=== PATIENT | female | born 1985 | race Caucasian/White ===

== ENCOUNTER → 2017-03-03 | Outpatient (CLI) | payer OTHER ==
[~2017-03-03] MED LIST: CIPR-255 PO; DPPI150 IM; OMEP20CA9 PO; ZLF/100 PO
[2017-03-03 12:39] LABS: BASO % 0.5 %; BASO ABS # 0.05 K/uL (0-0.2); COMPLETE YES; EOS % 2.7 %; HEMATOCRIT 39.9 % (37-47); IG% 0.3 %; LYMPH % 28.1 %; LYMPH ABS # 2.74 K/uL (1.2-3.4); MEAN CELL VOLUME 89.3 fL (80-100); MEAN CORPUSCULAR HEMOGLOBIN 30.2 pg (25-34); MEAN CORPUSCULAR HGB CONC 33.8 g/dl (32-36); MEAN PLATELET VOLUME 9.5 fL (7.4-10.4); MONO % 7.6 %; NEUT % 60.8 %; PLATELET COUNT 345 K/uL (130-400); RED BLOOD COUNT 4.47 M/uL (4.2-5.4); WHITE BLOOD COUNT 9.76 K/uL (4.8-10.8)
[2017-03-03 13:08] LABS: URINE APPEARANCE TURBID (CLEAR); URINE COLOR DK YELLOW; URINE EPITHELIAL CELL AUTO >30 /lpf (0-5); URINE NITRITE NEG (NEG); URINE PH 5.5 (4.5-7.5); URINE SPECIFIC GRAVITY 1.031 (1.000-1.030); UROBILINOGEN NEG (NEG); ZZUR CULT IF INDIC CLEAN CATCH YES
[2017-03-03 13:14] LABS: ALB/GLOB RATIO 1.3 (0.9-2); ALKALINE PHOSPHATASE 78 U/L (45-117); ALT/SGPT 25 U/L (12-78); AST/SGOT 20 U/L (15-37); BLOOD UREA NITROGEN 11 mg/dl (7-18); BUN/CREATININE RATIO 15.3 (10-20); CALCIUM 9.7 mg/dl (8.5-10.1); CARBON DIOXIDE 24 mmol/L (21-32); CHLORIDE 109 mmol/L (98-107); CREATININE 0.74 mg/dl (0.60-1.20); GLUCOSE 104 mg/dl (70-99); POTASSIUM 3.6 mmol/L (3.5-5.1); SODIUM 141 mmol/L (136-145)
[2017-03-03 13:26] LABS: LYME DISEASE AB IGM NEG (NEG)
[2017-03-03 13:28] LABS: MANUAL MICROSCOPIC REQUIRED? NO; REVIEW REQ? YES; URINE BILIRUBIN NEG (NEG)
[2017-03-03 13:29] LABS: LYME DISEASE AB IGG NEG (NEG)
== END | disposition home or self-care (01) ==
LOC: C.LABPVFM 10:00
PROVIDERS: ATTEND Neuromusculoskeletal Medicine & OMM
DX: R25.2 Cramp and spasm (principal); R30.0 Dysuria

== ENCOUNTER → 2017-03-22 | Outpatient (CLI) | payer OTHER ==
[2017-03-22 18:26] LABS: URINE APPEARANCE CLEAR (CLEAR); URINE BILIRUBIN NEG (NEG); URINE COLOR YELLOW; URINE EPITHELIAL CELL AUTO >30 /lpf (0-5); URINE NITRITE NEG (NEG); URINE PH 6.5 (4.5-7.5); URINE SPECIFIC GRAVITY 1.011 (1.000-1.030); UROBILINOGEN NEG (NEG); ZZUR CULT IF INDIC CLEAN CATCH NO
[2017-03-22 18:28] LABS: MANUAL MICROSCOPIC REQUIRED? NO; REVIEW REQ? NO
== END | disposition home or self-care (01) ==
LOC: C.LABSPEC 17:42
PROVIDERS: ATTEND Neuromusculoskeletal Medicine & OMM
DX: R10.9 Unspecified abdominal pain (principal)

== ENCOUNTER → 2017-06-08 | Outpatient (CLI) | payer OTHER ==
--- NOTE | 2017-06-08 12:08 | DIAGNOSTIC IMAGING REPORT ---
L-SPINE MIN 4 VIEWS ROUTINE HISTORY: 31 years-old Female BACK PAIN, LUMBAR RADICULAR PAIN acute low back pain with radiation to the left lower extremity COMPARISON: CT abdomen and pelvis 06/20/2016 TECHNIQUE: 5 views of the lumbar spine FINDINGS: There are 5 lumbar type vertebral segments present. No spondylolysis or spondylolisthesis. No acute fracture, subluxation or significant degenerative changes. Soft tissues are within normal limits. IMPRESSION: 1. No acute fracture or subluxation. 2. No significant degenerative changes or pars defect identified. The above report was generated using voice recognition software. It may contain grammatical, syntax or spelling errors. Electronically signed by: Adrian Hogue M.D. 06/08/2017 12:07 PM Dictated Date/Time: 06/08/2017 12:06 PM
== END | disposition home or self-care (01) ==
LOC: C.RADPV 11:47
PROVIDERS: ATTEND Nurse Practitioner
DX: M54.16 Radiculopathy, lumbar region (principal)

== ENCOUNTER → 2017-07-04 | Outpatient (CLI) | payer OTHER ==
[~2017-07-04] MED LIST changes: +ACET-1256 PO; +BACL10TA PO; +BUSP5TAB59 PO; +CYCL10TA6 PO; +HYDR-5688 PO; +MEDR150I IM; +buspar PO
--- NOTE | 2017-07-04 10:42 | DIAGNOSTIC IMAGING REPORT ---
MRI OF THE LUMBAR SPINE WITHOUT CONTRAST CLINICAL HISTORY: Low back pain with left-sided radiculopathy. COMPARISON STUDY: Lumbar spine radiographs June 08, 2017. TECHNIQUE: Utilizing a 1.5 Temitope magnet and dedicated coil, multiplanar, multiecho imaging of the lumbar spine was performed without IV contrast. FINDINGS: For purposes of numbering on this exam, the L5-S1 disc space is assigned to axial image 23 of 25. Vertebral body heights are maintained. There is no marrow replacement. No intracanalicular mass or fluid collection is present. The conus terminates at the upper L1 level. Paravertebral soft tissues are unremarkable. This study is mildly compromised by motion artifact. L1-2: The central canal and the neural foramen are patent. L2-3: The central canal and the neural foramen are patent. L3-4: The central canal and the neural foramen are patent. L4-5: The central canal and the neural foramen are patent. L5-S1: There is a small left foraminal/paracentral disc protrusion. There is mild narrowing of the left lateral recess. There is also mild narrowing of the left neural foramen. IMPRESSION: 1. Small left foraminal/paracentral disc protrusion at L5-S1 that results in mild narrowing of the left neural foramen and left lateral recess at this level. 2. Otherwise, unremarkable MRI of the lumbar spine. Electronically signed by: Jon Ochoa M.D. 07/04/2017 10:41 AM Dictated Date/Time: 07/04/2017 10:36 AM
== END | disposition home or self-care (01) ==
LOC: C.MRIBC 09:51
PROVIDERS: ATTEND Nurse Practitioner
DX: M54.16 Radiculopathy, lumbar region (principal); M51.27 Other intervertebral disc displacement, lumbosacral region

== ENCOUNTER 2017-08-27 17:32 | Emergency (ER) | payer OTHER ==
[~2017-08-27] VITALS: Ht 160 cm; Wt 74.8 kg
[~2017-08-27 17:32] MED LIST changes: -BUSP5TAB59 PO; -CIPR-255 PO; -CYCL10TA6 PO; -DPPI150 IM; -HYDR-5688 PO; -MEDR150I IM; -OMEP20CA9 PO; -ZLF/100 PO
[2017-08-27 17:41] VITALS: TEMP 37.2; Ht 160 cm; Wt 74.8 kg
[2017-08-27] MEDS ORDERED: IBUPROFEN 600 MG TAB PO STA (17:56)
[2017-08-27] MEDS ORDERED: ACETAMINOPHEN 500 MG TAB PO STA (17:56)
[2017-08-27] MEDS ORDERED: CLONIDINE HCL 0.1 MG TAB PO STA (17:56)
[2017-08-27] MEDS ORDERED: GABAPENTIN 300 MG CAP PO STA (17:56)
[2017-08-27] MEDS ORDERED: BUSP5TAB59 PO (18:22)
[2017-08-27] MEDS ORDERED: MEDR150I IM (18:22)
[2017-08-27] MEDS ORDERED: HYDR-5688 PO (18:23)
[2017-08-27] MEDS ORDERED: NORCO 5/325MG HOME PACK PO ONE (20:00)
[2017-08-27] MEDS ORDERED: HYDROCODONE/ACETAMIN 5/325MG TAB PO STA (20:00)
--- NOTE | 2017-08-27 20:04 | EMERGENCY ROOM VISIT NOTE ---
History First contact with patient: 17:49 Chief Complaint: BACK PAIN Stated Complaint: BACK PAIN History of Present Illness The patient is a 32 year old female who presents to the Emergency Room with complaints of low back pain with left radiculopathy. The patient states she is "unable to deal with the pain any longer". The patient has been under the care pain management as well as her PCP for her low back pain. She had an MRI performed on July 04, 2017 which revealed a mild paracentral left disc herniation. She then followed up with the pain management and had an epidural which did not give her any relief. She followed up on several occasions at pain management. She went to pain management on August 17 at that time informed them that she was going to go ahead with a different procedure and was placed on Neurontin 300 mg at bedtime. The patient states that she decided not to go ahead with the procedure. She was seen here for her back pain on August 25 just 2 days ago. She had an x-ray at that time which was normal. She also states that later that day she followed up with her PCP and was placed on Cleveland for the pain. She states that the Cleveland is not helping the pain. She also states that her PCP is setting her up with orthopedics for her back. The patient denies any loss of bowel or bladder control or any saddle anesthesia. She states the pain goes down her left leg to her knee. Review of Systems 6 system review was performed and was negative unless stated otherwise in history of present illness. Past Medical/Surgical History Medical Problems: (1) Kidney stones Family History FH: kidney disease Social History Smoking Status: Current Every Day Smoker Alcohol Use: none Marital Status: in relationship Housing Status: lives with family Occupation Status: unemployed Current/Historical Medications Scheduled Buspirone Hcl (Buspirone Hcl), 5 MG PO QAM Medroxyprogesterone Acetate (C (Depo-Provera Contraceptiv), 150 MG IM Q3MO Omeprazole (Prilosec), 20 MG PO BID Sertraline HCl (Sertraline HCl), 200 MG PO QAM Scheduled PRN Acetaminophen (Tylenol), 1,000 MG PO UD PRN for Pain or Fever Baclofen (Lioresal), 10 MG PO TID PRN for Muscle Spasm Hydrocodone/Acetaminophen 5MG/325MG (Cleveland 5MG/325MG), 1 TABLET PO Q4-6HRS PRN for Pain Physical Exam Vital Signs Date Time Temp Pulse Resp B/P (MAP) Pulse Ox O2 Delivery O2 Flow Rate FiO2 08/27/17 17:41 37.2 82 16 143/82 99 Room Air Physical Exam PHYSICAL EXAM: Vital Signs normal: Reviewed Nurse's notes and agree. GENERAL: 32-year-old white female appears crying secondary to pain. MENTAL STATUS: Alert and oriented 3 LUMBAR SPINE: No gross bony abnormality noted. Patient is tender to palpation over the spinous processes. She is tender to palpation over the left paravertebral region, left side nontender. She has limited range of motion in all directions secondary to pain. Muscle strength is 5 out of 5 bilateral lower extremities and symmetrical. NEURO: Patient is able to heel and toe walk without difficulty. I lateral patellar and Achilles reflexes are 2+. Sensation is intact to pinprick bilateral lower extremities. Negative straight leg raise bilaterally. Medical Decision & Procedures Medications Administered Medications (Trade) Dose Ordered Sig/Hoa Route Start Time Stop Time Status Last Admin Dose Admin Acetaminophen (Tylenol Tab) 1,000 mg NOW STAT PO 08/27/17 17:56 08/27/17 17:59 DC 08/27/17 18:21 1,000 MG Ibuprofen (Motrin Tab) 600 mg NOW STAT PO 08/27/17 17:56 08/27/17 17:59 DC 08/27/17 18:21 600 MG Gabapentin (Neurontin Cap) 900 mg NOW STAT PO 08/27/17 17:56 08/27/17 17:59 DC 08/27/17 18:20 900 MG Clonidine HCl (Catapres Tab) 0.2 mg NOW STAT PO 08/27/17 17:56 08/27/17 17:59 DC 08/27/17 18:20 0.2 MG ED Course The patient was evaluated. The patient's EMR medication list were reviewed. I also reviewed the patient's MRI. The patient's pain complaints are way out of proportion to the MRI findings as well as to her physical exam. I think she is seeking narcotics. She did receive morphine last time when she was in the emergency room. I am going to give her a "pain cocktail" she will receive Tylenol 1 g p.o., Motrin 600 mg p.o., clonidine 0.2 mg p.o. and gabapentin 900 mg p.o. the patient was reevaluated. She stated that her pain was now a 7 out of 10. The patient was informed that she cannot get a new prescription since she still has an active prescription for Cleveland since she only received that 2 days ago even though it was just 15 tablets. I did agree to give her 2 tablets while in the ER and give her a home pack to get her through the night until she can contact her family doctor tomorrow. The patient was in agreement with treatment plan and was discharged to home in stable condition with her driving. Medical Decision The patient has already been worked up for her back pain and therefore no additional diagnostic imaging was provided. [place] Drug Monitoring Program Search Results: patient reviewed within database Medication Reconcilliation Current Medication List: was personally reviewed by me Blood Pressure Screening Patient's blood pressure: Elevated blood pressure Blood pressure disposition: Elevated BP felt to be situational Impression Primary Impression: Lumbar back pain with radiculopathy affecting left lower extremity Departure Information Dispostion Home / Self-Care Condition GOOD Referrals Malka Campoverde, C.R.N.P (PCP) Forms HOME CARE DOCUMENTATION FORM, IMPORTANT VISIT INFORMATION Patient Instructions My [facility] Additional Instructions Continue all medications as prescribed. Increase her Cleveland to 2 tablets every 6 hours for pain. Call your family physician tomorrow for follow-up appointment as soon as possible as well as appointment with orthopedics. May also consider speaking with year PCP about switching her Zoloft over to Cymbalta since that might have some added effects for pain control for your lower back. Avoid staying in any one position for any extended period of time.
[2017-08-27] MEDS ORDERED: OMEP20CA9 PO (20:08)
[2017-08-27 20:12] VITALS: BP 110/79; PULSE 69; O2SAT 99
[2017-08-27] MEDS ORDERED: ZLF/100 PO (22:12)
== END 2017-08-27 20:14 | disposition home or self-care (01) ==
LOC: C.EDB 17:33 → C.EDC 20:14
DX: M54.16 Radiculopathy, lumbar region (principal); F17.200 Nicotine dependence, unspecified, uncomplicated; R03.0 Elevated blood-pressure reading, without diagnosis of hypertension; Z87.39 Personal history of other diseases of the musculoskeletal system and connective tissue; Z87.442 Personal history of urinary calculi; Z79.3 Long term (current) use of hormonal contraceptives; Z84.1 Family history of disorders of kidney and ureter

== ENCOUNTER 2021-12-07 16:56 | Inpatient (IN) ==
[2021-12-07] MEDS ORDERED: SODIUM CHLORIDE 0.9% 1000ML 1,000 ML IV ONE ×2 (17:43→20:11)
--- NOTE | 2021-12-07 17:46 | Emergency Department Note ---
Impression & Plan Acute flank pain, UTI (urinary tract infection), Renal colic, Leukocytosis ED Provider Note NAME: MICKIE HERNANDEZ AGE: 36 SEX: F : 1985 ARRIVES VIA: Walk-In INFORMANT: Patient ED PROVIDER(S): René Bright DO CHIEF COMPLAINT: right flank pain HPI: Patient is a 36-year-old female with past medical history of ovarian cysts, gastritis, and previous pyelonephritis who presents the ER for dysuria, urgency, which has been present for the past 3 days. She notes she has been having right back pain for the past 4 days. Denies any headache or change in vision. No chest pain or shortness of breath. No nausea, vomiting, or diarrhea. No other exacerbating or remitting factors. Pain is a 5 out of 10. She was brought in as she was arrested and needs medical clearance from the officers. ROS: See above HPI for pertinent positives & negatives. A total of 10 systems reviewed and were otherwise negative. PAST MEDICAL HISTORY:See Below PAST SURGICAL HISTORY:See Below FAMILY HISTORY:See Below SOCIAL HISTORY:See Below HOME MEDICATIONS:See Below ALLERGIES:See Below VITALS:See Below PHYSICAL EXAMINATION: GENERAL: Sitting up in bed, alert, well appearing, well nourished, no distress, non-toxic, shackled arms EYE EXAM: normal conjunctiva. OROPHARYNX: mucous membranes are moist LUNGS: Clear to auscultation. Normal chest wall mechanics HEART: no murmurs, S1 normal and S2 normal ABDOMEN: abdomen soft, non-tender, normo-active bowel sounds, no masses, no rebound or guarding. BACK: Back is symmetrical on inspection and there is no deformity, no midline tenderness, + CVA tenderness on the right. UPPER EXTREMITIES: upper extremities are grossly normal. LOWER EXTREMITIES: No pitting edema. NEURO EXAM: Normal sensorium, cranial nerves II-XII grossly intact, normal speech, no gross weakness of arms, no gross weakness of legs. MEDICAL DECISION MAKING: Patient is a 36-year-old female who presents ER for the above-stated complaint. IV was established blood work was obtained. Labs show mild leukocytosis of 16,000. No significant anemia. BMP along with LFTs bilirubin and lipase is unremarkable. UA does suggest a UTI. COVID was negative. was negative. CT abdomen pelvis shows a 7 mm left ureteral stone. She was given IV Rocephin IV fluids and IV morphine. She is updated bedside and discussed with Dr. Wilson for further evaluation. She is not septic at this time and consequently did not discussed with urology. Triage Nursing notes reviewed. Limited review of prior medical records performed Vital Signs: reviewed and remarkable for no significant abnormalities Differential diagnosis: Differential diagnoses includes but is not limited to gastritis, peptic ulcer disease, GERD, gallbladder disease, pancreatitis, small bowel obstruction, acute coronary syndrome, pericarditis, ischemic bowel, irritable bowel disease, irritable bowel syndrome, appendicitis, diverticulitis, malignancy, hernia, urinary tract infection, torsion, /ectopic (if female), perforation, trauma, infectious. ER treatment provided: See below Diagnostics interpreted by me: ECG: none Cardiac Monitoring: An order was placed for continuous cardiac monitoring. The monitor shows a rate of 80 with sinus rhythm. Laboratory studies: As stated above and show below. Imaging studies: CT abdomen pelvis as discussed above Consultation(s): Discussed with Dion Wilson for further evaluation Procedures: none Critical Care: None Past Med/Surg History Medical History (Updated 12/07/21 @ 23:18 by René Bright DO) Back pain Ovarian cyst Pyelonephritis Surgical History Status post epidural steroid injection Family History Other History of cholecystectomy Social History Smoking Status: Current every day smoker Preferred Language: Macanese marital status: Single current occupational status: unemployed Feels Safe at Home: Yes Allergies Allergies Allergy/AdvReac Type Severity Reaction Status Date / Time No Known Allergies Allergy Verified 12/07/21 18:03 Home Meds Home Medications Medication Instructions Recorded Confirmed No Known Home Medications 12/07/21 12/07/21 Results & Data (ED) Vital Signs Vital Signs - 24 hr 12/07/21 17:07 12/07/21 19:42 Temperature 36.1 C L Temperature Source Temporal Artery Scan Pulse Rate 83 Pulse Rate [Apical] 80 Respiratory Rate 18 16 Respiratory Effort / Characteristics Non-Labored Respiratory Depth Normal Blood Pressure 112/77 Blood Pressure [Right Arm] 107/57 L Blood Pressure Mean 88 Blood Pressure Mean [Right Arm] 73 Pulse Oximetry 99 99 Oxygen Delivery Method Room Air Room Air Sepsis Recent Fever Within 48 Hours No Sepsis New/Unexplained Change in Mental Status No Sepsis Action Taken by Nursing No Action Required Laboratory Data Result diagrams: 12/07/21 18:05 12/07/21 18:05 Lab Results 12/07/21 12/07/21 12/07/21 Range/Units 18:02 18:02 18:05 WBC 16.62 H (4.8-10.8) K/uL RBC 4.92 (4.2-5.4) M/uL Hgb 15.0 (12.0-16.0) g/dL POC Hgb (12.0-16.0) g/dl Hct 43.8 (37-47) % POC Hct (37-47) % MCV 89.0 (80-100) fL MCH 30.5 (25-34) pg MCHC 34.2 (32-36) g/dL RDW Std Deviation 40.3 (36.4-46.3) fL RDW Coeff of Jr 12.5 (11.5-14.5) % Plt Count 417 H (130-400) K/uL MPV 9.0 (7.4-10.4) fL Immature Gran % (Auto) 0.3 % Neut % (Auto) 84.5 % Lymph % (Auto) 7.5 % [place] % (Auto) 6.3 % Eos % (Auto) 1.2 % Baso % (Auto) 0.2 % Neut # (Auto) 14.04 H (1.4-6.5) K/uL Lymph # (Auto) 1.25 (1.2-3.4) K/uL [place] # (Auto) 1.04 H (0.11-0.59) K/uL Eos # (Auto) 0.20 (0-0.5) K/uL Baso # (Auto) 0.04 (0-0.2) K/uL Immature Gran # (Auto) 0.05 H (0.00-0.02) K/uL POC Sodium (135-144) mmol/L Sodium (136-145) mmol/L POC Potassium (3.3-5.0) mmol/L Potassium (3.5-5.1) mmol/L POC Chloride (101-112) mmol/L Chloride (98-107) mmol/L Carbon Dioxide (21-32) mmol/L POC Total CO2 (24-31) mmol/L Anion Gap (3-11) POC Anion Gap (16-25) mmol/L POC BUN (7-18) mg/dl BUN (6-23) mg/dl Creatinine (0.6-1.2) mg/dl POC Creatinine (0.6-1.3) mg/dl Est Cr Clr Drug Dosing Est GFR ( Amer) ml/min Est GFR (Non-Af Amer) ml/min BUN/Creatinine Ratio (10-20) Glucose (70-99(Fasting)) mg/dl POC Glucose (other) (70-99) mg/dl Calcium (8.5-10.1) mg/dl POC Ioniz Calcium Deyvi (1.12-1.32) mmol/l Total Bilirubin (0.2-1.0) mg/dl AST (13-39) U/L ALT (7-52) U/L Alkaline Phosphatase (34-104) U/L Total Protein (6.0-8.3) gm/dl Albumin (3.4-5.0) gm/dl Globulin (2.5-4.0) gm/dl Albumin/Globulin Ratio (0.9-2) Lipase (11-82) U/L Urine Color Yellow Urine Appearance Clear (Clear) Urine pH 6.0 (4.5-7.5) Ur Specific Dorothy 1.004 (1.000-1.030) Urine Protein Negative (Negative) Urine Glucose (UA) Negative (Negative) Urine Ketones Negative (Negative) Urine Blood 2+ H (Negative) Urine Nitrite Negative (Negative) Urine Bilirubin Negative (Negative) Urine Urobilinogen Negative (Negative) Ur Leukocyte Esterase 1+ H (Negative) Urine WBC (Auto) 5-10 H (0-5) /hpf Urine RBC (Auto) 5-10 H (0-4) /hpf U Hyaline Cast (Auto) 1-5 (0-5) /lpf U Epithel Cells (Auto) 10-20 H (0-5) /lpf Urine Bacteria (Auto) 1+ H (Negative) POC Ur Test NEG (NEG) SARS-CoV-2, RNA, NAAT (NEGATIVE) 12/07/21 12/07/21 12/07/21 Range/Units 18:05 18:12 20:27 WBC (4.8-10.8) K/uL RBC (4.2-5.4) M/uL Hgb (12.0-16.0) g/dL POC Hgb 15.0 (12.0-16.0) g/dl Hct (37-47) % POC Hct 44 (37-47) % MCV (80-100) fL MCH (25-34) pg MCHC (32-36) g/dL RDW Std Deviation (36.4-46.3) fL RDW Coeff of Jr (11.5-14.5) % Plt Count (130-400) K/uL MPV (7.4-10.4) fL Immature Gran % (Auto) % Neut % (Auto) % Lymph % (Auto) % [place] % (Auto) % Eos % (Auto) % Baso % (Auto) % Neut # (Auto) (1.4-6.5) K/uL Lymph # (Auto) (1.2-3.4) K/uL [place] # (Auto) (0.11-0.59) K/uL Eos # (Auto) (0-0.5) K/uL Baso # (Auto) (0-0.2) K/uL Immature Gran # (Auto) (0.00-0.02) K/uL POC Sodium 138 (135-144) mmol/L Sodium 136 (136-145) mmol/L POC Potassium 3.8 (3.3-5.0) mmol/L Potassium 3.7 (3.5-5.1) mmol/L POC Chloride 98 L (101-112) mmol/L Chloride 100 (98-107) mmol/L Carbon Dioxide 28 (21-32) mmol/L POC Total CO2 26 (24-31) mmol/L Anion Gap 8 (3-11) POC Anion Gap 18.0 (16-25) mmol/L POC BUN 9 (7-18) mg/dl BUN 11 (6-23) mg/dl Creatinine 1.31 H (0.6-1.2) mg/dl POC Creatinine 1.3 (0.6-1.3) mg/dl Est Cr Clr Drug Dosing Not Reportable Est GFR ( Amer) 61.4 ml/min Est GFR (Non-Af Amer) 53.0 ml/min BUN/Creatinine Ratio 8.4 L (10-20) Glucose 93 (70-99(Fasting)) mg/dl POC Glucose (other) 99 (70-99) mg/dl Calcium 10.1 (8.5-10.1) mg/dl POC Ioniz Calcium Deyvi 1.25 (1.12-1.32) mmol/l Total Bilirubin 1.5 H (0.2-1.0) mg/dl AST 15 (13-39) U/L ALT 12 (7-52) U/L Alkaline Phosphatase 69 (34-104) U/L Total Protein 8.2 (6.0-8.3) gm/dl Albumin 5.1 H (3.4-5.0) gm/dl Globulin 3.1 (2.5-4.0) gm/dl Albumin/Globulin Ratio 1.6 (0.9-2) Lipase 38 (11-82) U/L Urine Color Yellow Urine Appearance Clear (Clear) Urine pH 6.0 (4.5-7.5) Ur Specific Dorothy 1.027 (1.000-1.030) Urine Protein Negative (Negative) Urine Glucose (UA) Negative (Negative) Urine Ketones Trace H (Negative) Urine Blood 1+ H (Negative) Urine Nitrite Negative (Negative) Urine Bilirubin Negative (Negative) Urine Urobilinogen Negative (Negative) Ur Leukocyte Esterase 1+ H (Negative) Urine WBC (Auto) 10-30 H (0-5) /hpf Urine RBC (Auto) 0-4 (0-4) /hpf U Hyaline Cast (Auto) 1-5 (0-5) /lpf U Epithel Cells (Auto) 5-10 H (0-5) /lpf Urine Bacteria (Auto) 1+ H (Negative) POC Ur Test (NEG) SARS-CoV-2, RNA, NAAT (NEGATIVE) 12/07/21 Range/Units 22:40 WBC (4.8-10.8) K/uL RBC (4.2-5.4) M/uL Hgb (12.0-16.0) g/dL POC Hgb (12.0-16.0) g/dl Hct (37-47) % POC Hct (37-47) % MCV (80-100) fL MCH (25-34) pg MCHC (32-36) g/dL RDW Std Deviation (36.4-46.3) fL RDW Coeff of Jr (11.5-14.5) % Plt Count (130-400) K/uL MPV (7.4-10.4) fL Immature Gran % (Auto) % Neut % (Auto) % Lymph % (Auto) % [place] % (Auto) % Eos % (Auto) % Baso % (Auto) % Neut # (Auto) (1.4-6.5) K/uL Lymph # (Auto) (1.2-3.4) K/uL [place] # (Auto) (0.11-0.59) K/uL Eos # (Auto) (0-0.5) K/uL Baso # (Auto) (0-0.2) K/uL Immature Gran # (Auto) (0.00-0.02) K/uL POC Sodium (135-144) mmol/L Sodium (136-145) mmol/L POC Potassium (3.3-5.0) mmol/L Potassium (3.5-5.1) mmol/L POC Chloride (101-112) mmol/L Chloride (98-107) mmol/L Carbon Dioxide (21-32) mmol/L POC Total CO2 (24-31) mmol/L Anion Gap (3-11) POC Anion Gap (16-25) mmol/L POC BUN (7-18) mg/dl BUN (6-23) mg/dl Creatinine (0.6-1.2) mg/dl POC Creatinine (0.6-1.3) mg/dl Est Cr Clr Drug Dosing Est GFR ( Amer) ml/min Est GFR (Non-Af Amer) ml/min BUN/Creatinine Ratio (10-20) Glucose (70-99(Fasting)) mg/dl POC Glucose (other) (70-99) mg/dl Calcium (8.5-10.1) mg/dl POC Ioniz Calcium Deyvi (1.12-1.32) mmol/l Total Bilirubin (0.2-1.0) mg/dl AST (13-39) U/L ALT (7-52) U/L Alkaline Phosphatase (34-104) U/L Total Protein (6.0-8.3) gm/dl Albumin (3.4-5.0) gm/dl Globulin (2.5-4.0) gm/dl Albumin/Globulin Ratio (0.9-2) Lipase (11-82) U/L Urine Color Urine Appearance (Clear) Urine pH (4.5-7.5) Ur Specific Dorothy (1.000-1.030) Urine Protein (Negative) Urine Glucose (UA) (Negative) Urine Ketones (Negative) Urine Blood (Negative) Urine Nitrite (Negative) Urine Bilirubin (Negative) Urine Urobilinogen (Negative) Ur Leukocyte Esterase (Negative) Urine WBC (Auto) (0-5) /hpf Urine RBC (Auto) (0-4) /hpf U Hyaline Cast (Auto) (0-5) /lpf U Epithel Cells (Auto) (0-5) /lpf Urine Bacteria (Auto) (Negative) POC Ur Test (NEG) SARS-CoV-2, RNA, NAAT NEGATIVE (NEGATIVE) Administered Medications Discontinued Medications Sodium Chloride (Nss 1000ml) 1,000 mls @ 999 mls/hr IV .Q1H1M ONE Stop: 12/07/21 18:43 Last Infusion: 12/07/21 19:04 Dose: 0 mls/hr Documented by: [id number] Admin: 12/07/21 18:03 Dose: 999 mls/hr Documented by: [id number] Sodium Chloride (Nss 1000ml) 1,000 mls @ 999 mls/hr IV .Q1H1M ONE Stop: 12/07/21 21:11 Last Infusion: 12/07/21 21:04 Dose: 0 mls/hr Documented by: [id number] Admin: 12/07/21 20:24 Dose: 999 mls/hr Documented by: [id number] Ceftriaxone Sodium (Rocephin) 1,000 mg in 50 mls @ 100 mls/hr IV NOW STA Stop: 12/07/21 22:25 Last Admin: 12/07/21 22:47 Dose: 100 mls/hr Documented by: [id number] Ioversol (Optiray 320 100ml) 93 ml IV ONCE ONE Stop: 12/07/21 19:18 Last Admin: 12/07/21 19:17 Dose: 93 ml Documented by: [id number] Morphine Sulfate (Morphine Sulfate 4 Mg/Ml 1 Ml Carp\Vial) 4 mg IV NOW STA Stop: 06/07/22 21:57 Last Admin: 12/07/21 22:16 Dose: 4 mg Documented by: [id number] Ondansetron HCl (Ondansetron Inj 2 Mg/Ml 2 Ml Vial) 4 mg IV NOW STA Stop: 12/07/21 21:57 Last Admin: 12/07/21 22:16 Dose: 4 mg Documented by: [id number] Imaging Data Radiologist's Impression: Abdomen/Pelvis CT 12/07/21 17:[address] WITH IV CONTRAST CT DOSE: 256.08 mGy.cm HISTORY: Acute right-sided flank pain r flank pain TECHNIQUE: Multiaxial CT images of the abdomen and pelvis were performed following the IV administration of 93 cc of Optiray, A dose lowering technique was utilized adhering to the principles of ALARA. COMPARISON STUDY: 05/21/2018 FINDINGS: Imaged inferior cardiac chambers are unremarkable. Clear lung bases. No pneumatosis or pneumoperitoneum. Unremarkable spleen, pancreas, gallbladder, adrenal glands and liver. Patency of the hepatic and portal veins. 11 mm hypodense focus of the interpolar right kidney is suggestive of a cyst, previously 7 mm. There is mild left-sided hydroureter without significant hydronephrosis. Mild urothelial thickening and enhancement of the left ureter with a 5 x 4 x 7 mm left ureteral calculus at the level of L4. 4 mm nonobstructing calculus of the inferior pole left kidney. Unremarkable urinary bladder and adnexa 1.3 cm right ovarian follicle. Heterogeneous appearance of the uterus. Aorta and IVC are unremarkable. There is no lymphadenopathy. No bowel obstruction or bowel wall thickening. Normal appendix. Unremarkable soft tissues. Tiny fat filled periumbilical hernia. No acute fracture. Mild lumbar levoscoliosis. IMPRESSION: 1. Mild left-sided hydroureter without significant hydronephrosis secondary to a 7 mm left ureteral calculus at the level of L4. 2. Mild urothelial thickening and enhancement of the left ureter is likely reactive. Correlate with urinalysis to exclude superimposed infection. 3. Left nephrolithiasis. 4. No bowel obstruction or bowel wall thickening. Normal appendix. ACT 112: Negative or not required by law. The above report was generated using voice recognition software. It may contain grammatical, syntax or spelling errors. Electronically signed by: Kuldip Hogue M.D. 12/07/2021 7:51 PM Discharge Plan Visit Data Chief Complaint: Medical Clearance Stated Complaint: KIDNEY PAIN, POSSIBLE KIDNEY STONE ED Provider: René Bright Discharge Problem: Acute flank pain, UTI (urinary tract infection), Renal colic, Leukocytosis Forms Stand Alone Forms: ENEFpro Prescriptions Prescriptions: No Action No Known Home Medications RF: 0 Referrals Referrals: Eyal Johnson MD [Outside Practitioners] - Discharge Problem: UTI (urinary tract infection) Qualifiers: Urinary tract infection type: acute cystitis Hematuria presence: with hematuria Qualified Code(s): N30.01 - Acute cystitis with hematuria Leukocytosis Qualifiers: Leukocytosis type: unspecified Qualified Code(s): D72.829 - Elevated white blood cell count, unspecified
[2021-12-07 18:25] LABS: iSTAT Creatinine 1.3 mg/dl (0.6-1.3); iSTAT Ionized Calcium 1.25 mmol/l (1.12-1.32); iSTAT Potassium 3.8 mmol/L (3.3-5.0)
[2021-12-07 18:29] LABS: Basophils # (auto) 0.04 K/uL (0-0.2); Basophils % (auto) 0.2 %; Eosinophils % (auto) 1.2 %; Hematocrit (blood only) 43.8 % (37-47); Immature Granulocytes # (auto) 0.05 K/uL (0.00-0.02); Immature Granulocytes % (auto) 0.3 %; Lymphocytes # (auto) 1.25 K/uL (1.2-3.4); Lymphocytes % (auto) 7.5 %; Mean Corpuscular Hemoglobin 30.5 pg (25-34); Mean Corpuscular Hgb Conc 34.2 g/dL (32-36); Monocytes # (auto) 1.04 K/uL (0.11-0.59); Monocytes % (auto) 6.3 %; Neutrophils # (auto) 14.04 K/uL (1.4-6.5); Neutrophils % (auto) 84.5 %; Platelet Count 417 K/uL (130-400); RDW Coefficient of Variation 12.5 % (11.5-14.5); RDW Standard Deviation 40.3 fL (36.4-46.3); Red Blood Count 4.92 M/uL (4.2-5.4); White Blood Count 16.62 K/uL (4.8-10.8)
[2021-12-07 19:00] LABS: Alanine Aminotransferase 12 U/L (7-52); Albumin Globulin Ratio 1.6 (0.9-2); Albumin Level 5.1 gm/dl (3.4-5.0); Alkaline Phosphatase 69 U/L (34-104); Anion Gap 8 (3-11); Aspartate Aminotransferase 15 U/L (13-39); BUN Creatinine Ratio 8.4 (10-20); Bilirubin,Total 1.5 mg/dl (0.2-1.0); Blood Urea Nitrogen 11 mg/dl (6-23); Calcium 10.1 mg/dl (8.5-10.1); Carbon Dioxide 28 mmol/L (21-32); Chloride 100 mmol/L (98-107); Est GFR (African American) 61.4 ml/min; Globulin 3.1 gm/dl (2.5-4.0); Glucose 93 mg/dl (70-99(Fasting)); Lipase 38 U/L (11-82); Potassium 3.7 mmol/L (3.5-5.1); Sodium 136 mmol/L (136-145); Total Protein 8.2 gm/dl (6.0-8.3)
[2021-12-07 19:06] LABS: Appearance Urine Clear (Clear); Bilirubin Urine Negative (Negative); Blood Urine 2+ (Negative); Color Urine Yellow; Glucose Urine UA Negative (Negative); Ketones Urine Negative (Negative); Leukocyte Esterase Urine 1+ (Negative); Nitrite Urine Negative (Negative); Protein Urine Negative (Negative); Specific Gravity Urine 1.004 (1.000-1.030); Urobilinogen Urine Negative (Negative)
[2021-12-07] MEDS ORDERED: OPTIRAY 320 100ml IV ONE (19:17)
[2021-12-07 19:33] LABS: Bacteria Urine Automated 1+ (Negative)
--- NOTE | 2021-12-07 19:53 | CT Scan Report ---
ABDOMEN AND PELVIS CT WITH IV CONTRAST CT DOSE: 256.08 mGy.cm HISTORY: Acute right-sided flank pain r flank pain TECHNIQUE: Multiaxial CT images of the abdomen and pelvis were performed following the IV administrat ion of 93 cc of Optiray, A dose lowering technique was utilized adhering to the principles of ALARA. COMPARISON STUDY: 05/21/2018 FINDINGS: Imaged inferior cardiac chambers are unremarkable. Clear lung bases. No pneumatosis or pneu moperitoneum. Unremarkable spleen, pancreas, gallbladder, adrenal glands and liver. Patency of the he patic and portal veins. 11 mm hypodense focus of the interpolar right kidney is suggestive of a cyst, previously 7 mm. There is mild left-sided hydroureter without significant hydronephrosis. Mild urothelial thickening and enh ancement of the left ureter with a 5 x 4 x 7 mm left ureteral calculus at the level of L4. 4 mm nonobstructing calculus of the inferior pole left kidney. Unremarkable urinary bladder and adnex a 1.3 cm right ovarian follicle. Heterogeneous appearance of the uterus. Aorta and IVC are unremarkab le. There is no lymphadenopathy. No bowel obstruction or bowel wall thickening. Normal appendix. Unre markable soft tissues. Tiny fat filled periumbilical hernia. No acute fracture. Mild lumbar levoscoli osis. IMPRESSION: 1. Mild left-sided hydroureter without significant hydronephrosis secondary to a 7 mm left ureteral c alculus at the level of L4. 2. Mild urothelial thickening and enhancement of the left ureter is likely reactive. Correlate with u rinalysis to exclude superimposed infection. 3. Left nephrolithiasis. 4. No bowel obstruction or bowel wall thickening. Normal appendix. ACT 112: Negative or not required by law. The above report was generated using voice recognition software. It may contain grammatical, syntax o r spelling errors. Electronically signed by: Kuldip Hogue M.D. 12/07/2021 7:51 PM
[2021-12-07 21:24] LABS: Appearance Urine Clear (Clear); Bacteria Urine Automated 1+ (Negative); Bilirubin Urine Negative (Negative); Blood Urine 1+ (Negative); Color Urine Yellow; Glucose Urine UA Negative (Negative); Ketones Urine Trace (Negative); Leukocyte Esterase Urine 1+ (Negative); Nitrite Urine Negative (Negative); Protein Urine Negative (Negative); RBC Urine Automated 0-4 /hpf (0-4); Specific Gravity Urine 1.027 (1.000-1.030); Urobilinogen Urine Negative (Negative)
[2021-12-07] MEDS ORDERED: MoRPHine SULFATE 4 MG/ML 1 ML CARP\\VIAL IV STA (21:56)
[2021-12-07] MEDS ORDERED: cefTRIAXone SODIUM 1,000 MG/50 ML BAG IV STA (21:56)
[2021-12-07] MEDS ORDERED: ONDANSETRON INJ 2 MG/ML 2 ML VIAL IV STA (21:56)
[2021-12-07] MEDS ORDERED: LACTATED RINGER'S 1,000 ML IV ONE (23:20)
--- NOTE | 2021-12-07 23:38 | History & Physical Report ---
Date of Service December 07, 2021 Assessment & Plan (1) ARF (acute renal failure): Plan: Secondary to obstructive uropathy History of kidney stones No sepsis for now GERD, stable GMF Monitor creatinine response to IVF Strain urine Urology consult Re: Obstructive uropathy DVT prophylaxis. SCDs Full code Text document was generated using [employer] voice recognition software. It may contain grammatical or spelling errors. Kindly contact undersigned for clarification of any documentation item in question. ADDENDUM : Patient seen by Jabari Betts PA-C (Urology) on the floor. He recommends Flomax and IV Ceftriaxone. History of Present Illness Chief Complaint: Kidney stone pain Primary Care Provider: Dr. Johnson History obtained from patient and records. Medical history significant for urolithiasis, GERD, anxiety disorder. 4 days ago, patient noted back pain more on the right reminiscent of kidney stone pain. No hematuria, no fever. Some chills. Patient denies chest pain, SOB. Admits to not drinking as much water as she should. Patient given IV ceftriaxone at the ER. Medical History as above Surgical History : Paternal surgery, dental surgery Family History : Kidney stones Personal/Social history : Non-smoker, no EtOH intake, caregiver Allergies Allergy/AdvReac Type Severity Reaction Status Date / Time No Known Allergies Allergy Verified 12/07/21 18:03 Home Medications Medication Instructions Recorded Confirmed Type No Known Home Medications 12/07/21 12/07/21 History Past Med/Surg History Medical History (Updated 12/08/21 @ 09:18 by KADI Mehta) Back pain Ovarian cyst Pyelonephritis Surgical History Status post epidural steroid injection Family History Other History of cholecystectomy Social History Smoking Status: Never smoker Hx Alcohol Use: No Hx Substance Use: Yes Last Used Substance: Days (ago) Preferred Language: Kazakh Communication Ability: Effective 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 Beliefs That Will Affect Care: None marital status: Single Current Living Situation: Family current occupational status: unemployed Other Information That Helps Us Care for You: No Feels Safe at Home: Yes Safety Concerns: Feels Safe At This Time Assistive Devices: None Review of Systems Review of Systems: As per HPI, all other systems reviewed and negative Physical Exam Physical Exam: GENERAL: Slightly uncomfortable, no respiratory distress SKIN: Normal color, warm HEENT: [place] palpebral conjunctivae, teary-eyed, no ptosis, dry buccal mucosa NECK : Supple, no tenderness CHEST : CTA, no tenderness HEART : RRR, no obvious murmurs ABDOMEN: Some distention, nontender EXTREMITIES : No LE swelling/tenderness, no other conspicuous deformities noted NEUROLOGIC : Coherent, no facial asymmetry, no other gross focality Results & Data Results & Data ([facility]) Vital Signs (Past 12 Hours) Vital Signs Temp Pulse Pulse Resp BP BP Pulse Ox 12/07/21 23:00 83 17 132/79 98 12/07/21 19:42 80 16 107/57 L 99 12/07/21 17:07 36.1 C L 83 18 112/77 99 Laboratory Results Laboratory Results WBC 16.62 K/uL (4.8-10.8) H 12/07/21 18:05 RBC 4.92 M/uL (4.2-5.4) 12/07/21 18:05 Hgb 15.0 g/dL (12.0-16.0) 12/07/21 18:05 POC Hgb 15.0 g/dl (12.0-16.0) 12/07/21 18:12 Hct 43.8 % (37-47) 12/07/21 18:05 POC Hct 44 % (37-47) 12/07/21 18:12 MCV 89.0 fL (80-100) 12/07/21 18:05 MCH 30.5 pg (25-34) 12/07/21 18:05 MCHC 34.2 g/dL (32-36) 12/07/21 18:05 RDW Std Deviation 40.3 fL (36.4-46.3) 12/07/21 18:05 RDW Coeff of Jr 12.5 % (11.5-14.5) 12/07/21 18:05 Plt Count 417 K/uL (130-400) H 12/07/21 18:05 MPV 9.0 fL (7.4-10.4) 12/07/21 18:05 Immature Gran % (Auto) 0.3 % 12/07/21 18:05 Neut % (Auto) 84.5 % 12/07/21 18:05 Lymph % (Auto) 7.5 % 12/07/21 18:05 [place] % (Auto) 6.3 % 12/07/21 18:05 Eos % (Auto) 1.2 % 12/07/21 18:05 Baso % (Auto) 0.2 % 12/07/21 18:05 Neut # (Auto) 14.04 K/uL (1.4-6.5) H 12/07/21 18:05 Lymph # (Auto) 1.25 K/uL (1.2-3.4) 12/07/21 18:05 [place] # (Auto) 1.04 K/uL (0.11-0.59) H 12/07/21 18:05 Eos # (Auto) 0.20 K/uL (0-0.5) 12/07/21 18:05 Baso # (Auto) 0.04 K/uL (0-0.2) 12/07/21 18:05 Immature Gran # (Auto) 0.05 K/uL (0.00-0.02) H 12/07/21 18:05 POC Sodium 138 mmol/L (135-144) 12/07/21 18:12 Sodium 136 mmol/L (136-145) 12/07/21 18:05 POC Potassium 3.8 mmol/L (3.3-5.0) 12/07/21 18:12 Potassium 3.7 mmol/L (3.5-5.1) 12/07/21 18:05 POC Chloride 98 mmol/L (101-112) L 12/07/21 18:12 Chloride 100 mmol/L (98-107) 12/07/21 18:05 Carbon Dioxide 28 mmol/L (21-32) 12/07/21 18:05 POC Total CO2 26 mmol/L (24-31) 12/07/21 18:12 Anion Gap 8 (3-11) 12/07/21 18:05 POC Anion Gap 18.0 mmol/L (16-25) 12/07/21 18:12 POC BUN 9 mg/dl (7-18) 12/07/21 18:12 BUN 11 mg/dl (6-23) 12/07/21 18:05 Creatinine 1.31 mg/dl (0.6-1.2) H 12/07/21 18:05 POC Creatinine 1.3 mg/dl (0.6-1.3) 12/07/21 18:12 Est Cr Clr Drug Dosing Not Reportable 12/07/21 18:05 Est GFR ( Amer) 61.4 ml/min 12/07/21 18:05 Est GFR (Non-Af Amer) 53.0 ml/min 12/07/21 18:05 BUN/Creatinine Ratio 8.4 (10-20) L 12/07/21 18:05 Glucose 93 mg/dl (70-99(Fasting)) 12/07/21 18:05 POC Glucose (other) 99 mg/dl (70-99) 12/07/21 18:12 Calcium 10.1 mg/dl (8.5-10.1) 12/07/21 18:05 POC Ioniz Calcium Deyvi 1.25 mmol/l (1.12-1.32) 12/07/21 18:12 Total Bilirubin 1.5 mg/dl (0.2-1.0) H 12/07/21 18:05 AST 15 U/L (13-39) 12/07/21 18:05 ALT 12 U/L (7-52) 12/07/21 18:05 Alkaline Phosphatase 69 U/L (34-104) 12/07/21 18:05 Total Protein 8.2 gm/dl (6.0-8.3) 12/07/21 18:05 Albumin 5.1 gm/dl (3.4-5.0) H 12/07/21 18:05 Globulin 3.1 gm/dl (2.5-4.0) 12/07/21 18:05 Albumin/Globulin Ratio 1.6 (0.9-2) 12/07/21 18:05 Lipase 38 U/L (11-82) 12/07/21 18:05 Urine Color Yellow 12/07/21: Urine Appearance Clear (Clear) 12/07/21 Urine pH 6.0 (4.5-7.5) 12/07/21: Ur Specific [place] 1.027 (1.000-1.030) 12/07/21 Urine Protein Negative (Negative) 06/07/22 20:27 Urine Glucose (UA) Negative (Negative) 12/07/21 20:27 Urine Ketones Trace (Negative) H 12/07/21 20:27 Urine Blood 1+ (Negative) H 12/07/21 20:27 Urine Nitrite Negative (Negative) 12/07/21 20:27 Urine Bilirubin Negative (Negative) 12/07/21 20:27 Urine Urobilinogen Negative (Negative) 12/07/21 20:27 Ur Leukocyte Esterase 1+ (Negative) H 12/07/21 20:27 Urine WBC (Auto) 10-30 /hpf (0-5) H 12/07/21 20:27 Urine RBC (Auto) 0-4 /hpf (0-4) 12/07/21 20:27 U Hyaline Cast (Auto) 1-5 /lpf (0-5) 12/07/21 20:27 U Epithel Cells (Auto) 5-10 /lpf (0-5) H 12/07/21 20:27 Urine Bacteria (Auto) 1+ (Negative) H 12/07/21 20:27 POC Ur Test NEG (NEG) 12/07/21 18:02 SARS-CoV-2, RNA, NAAT NEGATIVE (NEGATIVE) 12/07/21 22:40 Impressions Abdomen/Pelvis CT 12/07/21 17:[address] WITH IV CONTRAST CT DOSE: 256.08 mGy.cm HISTORY: Acute right-sided flank pain r flank pain TECHNIQUE: Multiaxial CT images of the abdomen and pelvis were performed following the IV administration of 93 cc of Optiray, A dose lowering technique was utilized adhering to the principles of ALARA. COMPARISON STUDY: 05/21/2018 FINDINGS: Imaged inferior cardiac chambers are unremarkable. Clear lung bases. No pneumatosis or pneumoperitoneum. Unremarkable spleen, pancreas, gallbladder, adrenal glands and liver. Patency of the hepatic and portal veins. 11 mm hypodense focus of the interpolar right kidney is suggestive of a cyst, previously 7 mm. There is mild left-sided hydroureter without significant hydronephrosis. Mild urothelial thickening and enhancement of the left ureter with a 5 x 4 x 7 mm left ureteral calculus at the level of L4. 4 mm nonobstructing calculus of the inferior pole left kidney. Unremarkable ur inary bladder and adnexa 1.3 cm right ovarian follicle. Heterogeneous appearance of the uterus. Aorta and IVC are unremarkable. There is no lymphadenopathy. No bowel obstruction or bowel wall thickening. Normal appendix. Unremarkable soft tissues. Tiny fat filled periumbilical hernia. No acute fracture. Mild lumbar levoscoliosis. IMPRESSION: 1. Mild left-sided hydroureter without significant hydronephrosis secondary to a 7 mm left ureteral calculus at the level of L4. 2. Mild urothelial thickening and enhancement of the left ureter is likely reactive. Correlate with urinalysis to exclude superimposed infection. 3. Left nephrolithiasis. 4. No bowel obstruction or bowel wall thickening. Normal appendix. ACT 112: Negative or not required by law. The above report was generated using voice recognition software. It may contain grammatical, syntax or spelling errors. Electronically signed by: Kuldip Hogue M.D. 12/07/2021 7:51 PM Diagnostic Findings Chest x-ray as per my interpretation no congestion
[2021-12-07] MEDS ORDERED: oxyCODONE HCL IR 5 MG TAB (IMMEDIATE RELEASE) PO STA (23:42)
[2021-12-08] MEDS ORDERED: HYDROmorphone INJ 0.5 MG/0.5 ML SYR IV PRN (01:47)
[2021-12-08] MEDS ORDERED: PROMETHAZINE HCL 12.5 MG in SODIUM CHLORIDE 0.9% 50 ML IV PRN (01:47)
--- NOTE | 2021-12-08 05:25 | Urology Consultation ---
Date of Consultation December 08, 2021 Assessment & Plan (1) Nephrolithiasis: Patient has been admitted on the hospitalist service. We recommend proceeding as follows: Provide analgesics Provide antiemetics Provide hydration measures with IV fluids She has received Rocephin in the emergency department. Due to her elevated white blood cell count, chills, and urinalysis findings would recommend continuous medication and following patient's urine culture tailoring antibiotics based on the results of this Consider adding Flomax for expulsive therapy Keep patient n.p.o. she will be evaluated by our urology day team to determine if she will require any cystoscopy. The above plan was discussed with the hospitalist service. History of Present Illness Reason for Consultation: Nephrolithiasis Attending Physician: Blaise Reeves MD History of Present Illness This is a 36-year-old female who presented to [facility] emergency department secondary to 3 to 4 days of flank pain. Patient says that she did have some pain in both flanks but was primarily on the left. She notes that there was some radiation of the pain to the front of her abdomen. She denies any nausea or vomiting. No fevers were reported but she did report occasional chills. She does report some intermittent dysuria denies any hematuria. She does report history of kidney stones in the past but has always been able to pass them on her own without any procedural intervention. Since admission to the hospital and presentation to the emergency department the patient has had labs and imaging which I independently reviewed. Patient is noted to have mild left-sided hydroureter secondary to a 7 mm left ureteral k idney stone. Chest x-ray showed no evidence of pneumonia. Labs including CBC were white blood cell count was 16.6. Hemoglobin and hematocrit were noted to be within normal range. Platelet count was 417,000. Chemistry profile showed sodium and potassium are both normal as were BUN. Fattening had a slight elevation at 1.3. Urinalysis showed 1+ leukocyte Estrace and 10-30 white blood cells per high-power field. There is 1+ bacteria in the study. A COVID test was noted to be negative and a test was noted be negative. At the time of my interview the patient noted that her flank pain had shifted more to the area of her bladder. She was in no distress. Allergies Allergy/AdvReac Type Severity Reaction Status Date / Time No Known Allergies Allergy Verified 12/07/21 18:03 Home Medications Medication Instructions Recorded Confirmed Type No Known Home Medications 12/07/21 12/07/21 History Patient History Medical History (Updated 12/08/21 @ 05:22 by Mushtaq Betts PA-C) Back pain Ovarian cyst Pyelonephritis Surgical History Status post epidural steroid injection Family History Other History of cholecystectomy Social History Smoking Status: Never smoker Hx Alcohol Use: No Hx Substance Use: Yes Last Used Substance: Days (ago) Preferred Language: Wolof Communication Ability: 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 Beliefs That Will Affect Care: None marital status: Single Current Living Situation: Family current occupational status: unemployed Other Information That Helps Us Care for You: No Feels Safe at Home: Yes Safety Concerns: Feels Safe At This Time Assistive Devices: None Review of Systems Constitutional: + chills; no fever Eyes: no eye pain Ear, Nose, Mouth, Throat: no ear pain Respiratory: no cough and no dyspnea Cardiovascular: no chest pain Gastrointestinal: + abdominal pain (Radiation from flank on left); no nausea and no vomiting Genitourinary: + dysuria; no hematuria Musculoskeletal: + back pain (Flank pain) Integumentary: no rash Neurologic: no localized weakness Physical Exam Constitutional: WD/WN, vitals as above Eyes: no conjunctival abnormality ENMT: Ears: no hearing impairment and no external ear abnormality Mouth: no oropharynx abnormality Neck: trachea midline Respiratory: normal respiratory effort; no respiratory distress and no labored breathing Cardiovascular: Rate/Rhythm: regular rate and regular rhythm Gastrointestinal (Abdomen): Soft, nontender, nonrigid, nondistended. There is minimal to no palpation with pain Musculoskeletal: No calf tenderness Skin: no rashes Neurologic: moves all extremities Psychiatric: A+Ox3, euthymic affect Genitourinary: + CVA tenderness (Bilateral with percussion, left greater than right) Results & Data ([facility]) Vital Signs (Past 12 Hours) Vital Signs Temp Pulse Pulse Pulse Resp BP BP 12/08/21 01:35 36.7 C 57 L 18 119/67 12/08/21 01:00 74 19 118/70 12/08/21 00:00 63 18 124/61 12/07/21 23:00 83 17 132/79 12/07/21 19:42 80 16 107/57 L Pulse Ox 12/08/21 01:35 99 12/08/21 01:00 97 12/08/21 00:00 97 12/07/21 23:00 98 12/07/21 19:42 99 PG Care Time/CCT Total # of Minutes Spent Total Time Spent with Patient: Total time spent is greater than 50% in coordination of care (as documented) at patient's floor/unit and/or counseling patient: Coding Level of Care Code 89298 Inpt Consult Level 5 Diagnoses Nephrolithiasis N20.0
[2021-12-08] MEDS: oxyCODONE HCL IR 5 MG TAB (IMMEDIATE RELEASE) PO PRN ×2 (05:35→14:03)
[2021-12-08] MEDS: LACTATED RINGER'S 1,000 ML IV SCH ×2 (05:41→12:46)
[2021-12-08] MEDS: TAMSULOSIN HCL 0.4 MG CAP PO SCH (06:33)
[2021-12-08 07:08] LABS: Basophils # (auto) 0.03 K/uL (0-0.2); Basophils % (auto) 0.3 %; Eosinophils # (auto) 0.31 K/uL (0-0.5); Eosinophils % (auto) 3.3 %; Hematocrit (blood only) 38.1 % (37-47); Hemoglobin 12.5 g/dL (12.0-16.0); Immature Granulocytes # (auto) 0.02 K/uL (0.00-0.02); Immature Granulocytes % (auto) 0.2 %; Lymphocytes # (auto) 2.64 K/uL (1.2-3.4); Mean Corpuscular Hemoglobin 29.6 pg (25-34); Mean Corpuscular Hgb Conc 32.8 g/dL (32-36); Mean Corpuscular Volume 90.1 fL (80-100); Mean Platelet Volume 8.9 fL (7.4-10.4); Monocytes # (auto) 1.12 K/uL (0.11-0.59); Monocytes % (auto) 11.9 %; Neutrophils % (auto) 56.3 %; Platelet Count 362 K/uL (130-400); RDW Coefficient of Variation 12.6 % (11.5-14.5); Red Blood Count 4.23 M/uL (4.2-5.4); White Blood Count 9.42 K/uL (4.8-10.8)
[2021-12-08 07:40] LABS: BUN Creatinine Ratio 7.7 (10-20); Calcium 8.5 mg/dl (8.5-10.1); Creatinine Clr Calc Pharmacy 91.2 ml/min; Est GFR (Non-African American) 99.2 ml/min; Potassium 3.6 mmol/L (3.5-5.1)
--- NOTE | 2021-12-08 07:56 | Hospitalist Progress Note ---
Date of Service December 08, 2021 Assessment & Plan (1) ARF (acute renal failure): Plan: JOSÉ MIGUEL Secondary to obstructive uropathy History of kidney stones No sepsis for now CT abd/ pelvis 1. Mild left-sided hydroureter without significant hydronephrosis secondary to a 7 mm left ureteral calculus at the level of L4. 2. Mild urothelial thickening and enhancement of the left ureter is likely reactive. Correlate with urinalysis to exclude superimposed infection. 3. Left nephrolithiasis. Creatinine improved after IV fluids Creatinine 1.3 on admission, now 0.8 Strain urine add flomax Cont. ceftriaxone for now Urology consulted Re: Obstructive uropathy Patient is now status post cystoscopy and left ureteral stent placement (12/08, Dr. Alford, urology) Tolerated procedure well, has very mild hematuria UTI Leukocytosis WBC 16.6 K, now normalized at 9.4 K Urine culture positive for gram-negative bacilli x2 Started IV ceftriaxone on admission, cont. for now Follow final urine culture Chronic conditions GERD, stable DVT prophylaxis. SCDs Full code Admission and Anticipated Discharge Date Admission Date: December 07, 2021 Subjective Pt seen in follow up of renal stones, renal colic, hydronephrosis (on the left) Patient underwent cystoscopy, left ureteral stent placement with urology today Currently laying in bed, resting comfortably Denies fevers, chills, chest pain, shortness of breath, has some abdominal pain on and off Reports some mild hematuria after procedure Creatinine improved, white blood cell count improved as of this morning Review of Systems Review of Systems: All systems reviewed & are unremarkable except as noted in Subjective Physical Exam Physical Exam: GENERAL: Young F, laying in bed, in no distress HEENT: NC/AT, EOMI, PERRL NECK : Supple, no tenderness CHEST : CTAB HEART : RRR, no obvious murmurs ABDOMEN: Some distention, lower abdomen mildly tender to palp. EXTREMITIES : No LE swelling, moves extremities NEUROLOGIC : Coherent, no facial asymmetry, speech fluent, moves extremities SKIN: Normal color, warm Results & Data Results & Data ([facility]) Vital Signs (Past 12 Hours) Vital Signs Temp Pulse Pulse Resp BP BP Pulse Ox 12/08/21 01:35 36.7 C 57 L 18 119/67 99 12/08/21 01:00 74 19 118/70 97 12/08/21 00:00 63 18 124/61 97 12/07/21 23:00 83 17 132/79 98 Laboratory Results 12/08/21 12/08/21 12/07/21 Range/Units 06:34 06:34 22:40 WBC 9.42 (4.8-10.8) K/uL RBC 4.23 (4.2-5.4) M/uL Hgb 12.5 (12.0-16.0) g/dL POC Hgb (12.0-16.0) g/dl Hct 38.1 (37-47) % POC Hct (37-47) % MCV 90.1 (80-100) fL MCH 29.6 (25-34) pg MCHC 32.8 (32-36) g/dL RDW Std Deviation 41.0 (36.4-46.3) fL RDW Coeff of Jr 12.6 (11.5-14.5) % Plt Count 362 (130-400) K/uL MPV 8.9 (7.4-10.4) fL Immature Gran % (Auto) 0.2 % Neut % (Auto) 56.3 % Lymph % (Auto) 28.0 % [place] % (Auto) 11.9 % Eos % (Auto) 3.3 % Baso % (Auto) 0.3 % Neut # (Auto) 5.30 (1.4-6.5) K/uL Lymph # (Auto) 2.64 (1.2-3.4) K/uL [place] # (Auto) 1.12 H (0.11-0.59) K/uL Eos # (Auto) 0.31 (0-0.5) K/uL Baso # (Auto) 0.03 (0-0.2) K/uL Immature Gran # (Auto) 0.02 (0.00-0.02) K/uL POC Sodium (135-144) mmol/L Sodium 140 (136-145) mmol/L POC Potassium (3.3-5.0) mmol/L Potassium 3.6 (3.5-5.1) mmol/L POC Chloride (101-112) mmol/L Chloride 109 H (98-107) mmol/L Carbon Dioxide 27 (21-32) mmol/L POC Total CO2 (24-31) mmol/L Anion Gap 4 (3-11) POC Anion Gap (16-25) mmol/L POC BUN (7-18) mg/dl BUN 6 (6-23) mg/dl Creatinine 0.78 D (0.6-1.2) mg/dl POC Creatinine (0.6-1.3) mg/dl Est Cr Clr Drug Dosing 91.2 Est GFR ( Amer) 115.0 ml/min Est GFR (Non-Af Amer) 99.2 ml/min BUN/Creatinine Ratio 7.7 L (10-20) Glucose 83 (70-99(Fasting)) mg/dl POC Glucose (other) (70-99) mg/dl Calcium 8.5 (8.5-10.1) mg/dl POC Ioniz Calcium Deyvi (1.12-1.32) mmol/l Total Bilirubin (0.2-1.0) mg/dl AST (13-39) U/L ALT (7-52) U/L Alkaline Phosphatase (34-104) U/L Total Protein (6.0-8.3) gm/dl Albumin (3.4-5.0) gm/dl Globulin (2.5-4.0) gm/dl Albumin/Globulin Ratio (0.9-2) Lipase (11-82) U/L Urine Color Urine Appearance (Clear) Urine pH (4.5-7.5) Ur Specific [place] (1.000-1.030) Urine Protein (Negative) Urine Glucose (UA) (Negative) Urine Ketones (Negative) Urine Blood (Negative) Urine Nitrite (Negative) Urine Bilirubin (Negative) Urine Urobilinogen (Negative) Ur Leukocyte Esterase (Negative) Urine WBC (Auto) (0-5) /hpf Urine RBC (Auto) (0-4) /hpf U Hyaline Cast (Auto) (0-5) /lpf U Epithel Cells (Auto) (0-5) /lpf Urine Bacteria (Auto) (Negative) POC Ur Test (NEG) SARS-CoV-2, RNA, NAAT NEGATIVE (NEGATIVE) 12/07/21 12/07/21 12/07/21 Range/Units 20:27 18:12 18:05 WBC (4.8-10.8) K/uL RBC (4.2-5.4) M/uL Hgb (12.0-16.0) g/dL POC Hgb 15.0 (12.0-16.0) g/dl Hct (37-47) % POC Hct 44 (37-47) % MCV (80-100) fL MCH (25-34) pg MCHC (32-36) g/dL RDW Std Deviation (36.4-46.3) fL RDW Coeff of Jr (11.5-14.5) % Plt Count (130-400) K/uL MPV (7.4-10.4) fL Immature Gran % (Auto) % Neut % (Auto) % Lymph % (Auto) % [place] % (Auto) % Eos % (Auto) % Baso % (Auto) % Neut # (Auto) (1.4-6.5) K/uL Lymph # (Auto) (1.2-3.4) K/uL [place] # (Auto) (0.11-0.59) K/uL Eos # (Auto) (0-0.5) K/uL Baso # (Auto) (0-0.2) K/uL Immature Gran # (Auto) (0.00-0.02) K/uL POC Sodium 138 (135-144) mmol/L Sodium 136 (136-145) mmol/L POC Potassium 3.8 (3.3-5.0) mmol/L Potassium 3.7 (3.5-5.1) mmol/L POC Chloride 98 L (101-112) mmol/L Chloride 100 (98-107) mmol/L Carbon Dioxide 28 (21-32) mmol/L POC Total CO2 26 (24-31) mmol/L Anion Gap 8 (3-11) POC Anion Gap 18.0 (16-25) mmol/L POC BUN 9 (7-18) mg/dl BUN 11 (6-23) mg/dl Creatinine 1.31 H (0.6-1.2) mg/dl POC Creatinine 1.3 (0.6-1.3) mg/dl Est Cr Clr Drug Dosing Not Reportable Est GFR ( Amer) 61.4 ml/min Est GFR (Non-Af Amer) 53.0 ml/min BUN/Creatinine Ratio 8.4 L (10-20) Glucose 93 (70-99(Fasting)) mg/dl POC Glucose (other) 99 (70-99) mg/dl Calcium 10.1 (8.5-10.1) mg/dl POC Ioniz Calcium Deyvi 1.25 (1.12-1.32) mmol/l Total Bilirubin 1.5 H (0.2-1.0) mg/dl AST 15 (13-39) U/L ALT 12 (7-52) U/L Alkaline Phosphatase 69 (34-104) U/L Total Protein 8.2 (6.0-8.3) gm/dl Albumin 5.1 H (3.4-5.0) gm/dl Globulin 3.1 (2.5-4.0) gm/dl Albumin/Globulin Ratio 1.6 (0.9-2) Lipase 38 (11-82) U/L Urine Color Yellow Urine Appearance Clear (Clear) Urine pH 6.0 (4.5-7.5) Ur Specific [place] 1.027 (1.000-1.030) Urine Protein Negative (Negative) Urine Glucose (UA) Negative (Negative) Urine Ketones Trace H (Negative) Urine Blood 1+ H (Negative) Urine Nitrite Negative (Negative) Urine Bilirubin Negative (Negative) Urine Urobilinogen Negative (Negative) Ur Leukocyte Esterase 1+ H (Negative) Urine WBC (Auto) 10-30 H (0-5) /hpf Urine RBC (Auto) 0-4 (0-4) /hpf U Hyaline Cast (Auto) 1-5 (0-5) /lpf U Epithel Cells (Auto) 5-10 H (0-5) /lpf Urine Bacteria (Auto) 1+ H (Negative) POC Ur Test (NEG) SARS-CoV-2, RNA, NAAT (NEGATIVE) 12/07/21 12/07/21 12/07/21 Range/Units 18:05 18:02 18:02 WBC 16.62 H (4.8-10.8) K/uL RBC 4.92 (4.2-5.4) M/uL Hgb 15.0 (12.0-16.0) g/dL POC Hgb (12.0-16.0) g/dl Hct 43.8 (37-47) % POC Hct (37-47) % MCV 89.0 (80-100) fL MCH 30.5 (25-34) pg MCHC 34.2 (32-36) g/dL RDW Std Deviation 40.3 (36.4-46.3) fL RDW Coeff of Jr 12.5 (11.5-14.5) % Plt Count 417 H (130-400) K/uL MPV 9.0 (7.4-10.4) fL Immature Gran % (Auto) 0.3 % Neut % (Auto) 84.5 % Lymph % (Auto) 7.5 % [place] % (Auto) 6.3 % Eos % (Auto) 1.2 % Baso % (Auto) 0.2 % Neut # (Auto) 14.04 H (1.4-6.5) K/uL Lymph # (Auto) 1.25 (1.2-3.4) K/uL [place] # (Auto) 1.04 H (0.11-0.59) K/uL Eos # (Auto) 0.20 (0-0.5) K/uL Baso # (Auto) 0.04 (0-0.2) K/uL Immature Gran # (Auto) 0.05 H (0.00-0.02) K/uL POC Sodium (135-144) mmol/L Sodium (136-145) mmol/L POC Potassium (3.3-5.0) mmol/L Potassium (3.5-5.1) mmol/L POC Chloride (101-112) mmol/L Chloride (98-107) mmol/L Carbon Dioxide (21-32) mmol/L POC Total CO2 (24-31) mmol/L Anion Gap (3-11) POC Anion Gap (16-25) mmol/L POC BUN (7-18) mg/dl BUN (6-23) mg/dl Creatinine (0.6-1.2) mg/dl POC Creatinine (0.6-1.3) mg/dl Est Cr Clr Drug Dosing Est GFR ( Amer) ml/min Est GFR (Non-Af Amer) ml/min BUN/Creatinine Ratio (10-20) Glucose (70-99(Fasting)) mg/dl POC Glucose (other) (70-99) mg/dl Calcium (8.5-10.1) mg/dl POC Ioniz Calcium Deyvi (1.12-1.32) mmol/l Total Bilirubin (0.2-1.0) mg/dl AST (13-39) U/L ALT (7-52) U/L Alkaline Phosphatase (34-104) U/L Total Protein (6.0-8.3) gm/dl Albumin (3.4-5.0) gm/dl Globulin (2.5-4.0) gm/dl Albumin/Globulin Ratio (0.9-2) Lipase (11-82) U/L Urine Color Yellow Urine Appearance Clear (Clear) Urine pH 6.0 (4.5-7.5) Ur Specific [place] 1.004 (1.000-1.030) Urine Protein Negative (Negative) Urine Glucose (UA) Negative (Negative) Urine Ketones Negative (Negative) Urine Blood 2+ H (Negative) Urine Nitrite Negative (Negative) Urine Bilirubin Negative (Negative) Urine Urobilinogen Negative (Negative) Ur Leukocyte Esterase 1+ H (Negative) Urine WBC (Auto) 5-10 H (0-5) /hpf Urine RBC (Auto) 5-10 H (0-4) /hpf U Hyaline Cast (Auto) 1-5 (0-5) /lpf U Epithel Cells (Auto) 10-20 H (0-5) /lpf Urine Bacteria (Auto) 1+ H (Negative) POC Ur Test NEG (NEG) SARS-CoV-2, RNA, NAAT (NEGATIVE) Medications Administered Current Inpatient Medications Acetaminophen (Acetaminophen 325 Mg Tab) 650 mg PO Q6H PRN PRN Reason: Fever/pain Stop: 01/06/22 23:41 Hydromorphone HCl (Hydromorphone Inj 0.5 Mg/0.5 Ml Syr) 0.5 mg IV Q3H PRN PRN Reason: Pain Stop: 12/22/21 01:46 Last Admin: 12/08/21 01:58 Dose: 0.5 mg Documented by: Promethazine HCl 12.5 mg/ (Sodium Chloride) 50.5 mls @ 202 mls/hr IV Q6H PRN PRN Reason: Nausea And Vomiting Stop: 01/07/22 01:46 Ceftriaxone Sodium 1,000 mg/ (Dextrose) 60 mls @ 100 mls/hr IV Q24H PAOLO; Protocol Stop: 12/18/21 20:59 Lactated Ringer's (Lr) 1,000 mls @ 100 mls/hr IV .Q10H PAOLO Stop: 01/07/22 05:29 Last Admin: 12/08/21 05:41 Dose: 100 mls/hr Documented by: Oxycodone HCl (Oxycodone Hcl Ir 5 Mg Tab (Immediate Release)) 5 - 10 mg PO QID PRN PRN Reason: Pain Stop: 12/22/21 01:46 Last Admin: 12/08/21 05:35 Dose: 10 mg Documented by: Tamsulosin HCl (Tamsulosin Hcl 0.4 Mg Cap) [facility] Stop: 01/07/22 05:29 Last Admin: 12/08/21 06:33 Dose: 0.4 mg Documented by:
--- NOTE | 2021-12-08 08:10 | XRay Report ---
XR chest 1V portable CLINICAL HISTORY: renal failure TECHNIQUE: Single frontal radiograph of the chest was obtained. Comparison: Comparison is made to chest radiograph 09/09/2019 FINDINGS: No lines and tubes are seen. The cardiomediastinal silhouette is normal. The lungs are clear. No evid ence of pleural effusion or pneumothorax. IMPRESSION: No acute chest disease. ACT 112: Negative or not required by law. Electronically signed by: Michael Marie M.D. 12/08/2021 8:09 AM
--- NOTE | 2021-12-08 09:22 | Urology Progress Note ---
Date of Service December 08, 2021 Assessment & Plan (1) Left ureteral calculus: (2) Renal colic: Plan: 36yo F admitted with intractable left flank pain, JOSÉ MIGUEL, and concern for UTI in the setting of a left-sided ureteral calculus causing mild urothelial thickening and enhancement of the left ureter - Afebrile, hemodynamically stable. - Labs reviewed - Wbc down from 16.62- 9.42 today, Creatinine improved from 1.31 -0.78 today - UA with 1+LE, 1+bacteria, 10-30 white blood cells, Urine culture pending. - Discussed acute stone management with cystoscopy and stent placement. Ureteral stents were discussed as well as post-operative issues and pain management. Also discussed that she will need an additional procedure in the future for stone treatment. All questions were answered. - Patient agreeable to proceeding with stent placement today. - Plan of care reviewed with Dr. Alford, on-call urologist. - Given her flank pain and concern for UTI in the context of a 7mm left ureteral stone, will proceed with OR for cystoscopy, left retrograde pyelogram, left ureteral stent placement. - Risks and benefits to be reviewed with patient by Dr. Alford. OR notified. Covid test negative. Covered with scheduled IV Rocephin. - Keep NPO. - Continue supportive care, antibiotic therapy, and pain management. - Will continue to follow. Admission and Anticipated Discharge Date Admission Date: December 07, 2021 Supervising Physician Co-Signing Physician Notes 36-year-old female with a left-sided ureteral calculus. Options discussed and patient wanted to proceed with stent placement. Consent obtained. Patient marked. Subjective Pt examined at bedside this AM. Awake, resting in bed on arrival. Left flank pain has significantly improved since arrival. Reports suprapubic discomfort at present. No fevers or chills. Denies nausea or vomiting. Has been NPO. Notes no stone passage. Voiding without issue. Intermittent dysuria, no hematuria. Review of Systems Constitutional: as per Subjective / HPI Gastrointestinal: as per Subjective / HPI Genitourinary: as per Subjective / HPI Physical Exam Constitutional: no acute distress Respiratory: no respiratory distress and no labored breathing Gastrointestinal (Abdomen): Inspection/Auscultation: abdomen normal to inspection Neurologic: moves all extremities and awake Psychiatric: Orientation: alert, oriented x 3 and cooperative Results & Data ([facility]) Vital Signs (Past 12 Hours) Vital Signs Temp Pulse Pulse Resp BP BP Pulse Ox 12/08/21 08:54 36.8 C 80 18 102/66 96 12/08/21 01:35 36.7 C 57 L 18 119/67 99 12/08/21 01:00 74 19 118/70 97 12/08/21 00:00 63 18 124/61 97 12/07/21 23:00 83 17 132/79 98 PG Care Time/CCT Total # of Minutes Spent Total Time Spent with Patient: Total time spent is greater than 50% in coordination of care (as documented) at patient's floor/unit and/or counseling patient: Coding Level of Care Code None Diagnoses Left ureteral calculus N20.1 Renal colic N23
[2021-12-08] MEDS ORDERED: ATROPINE SULFATE 0.1 MG/ML 10ML SYR IV PRN (10:22)
[2021-12-08] MEDS ORDERED: GABAPENTIN 600 MG TAB PO STA (10:22)
[2021-12-08] MEDS ORDERED: ePHEDrine sulfate 50 MG/ML AMP IV PRN (10:22)
[2021-12-08] MEDS ORDERED: ACETAMINOPHEN 500 MG TAB PO ONE (10:23)
[2021-12-08] MEDS ORDERED: CeleBREX 200 MG CAP PO ONE (10:23)
[2021-12-08] MEDS ORDERED: LIDOCAINE 2% 2 ML VIAL/AMP(20MG/ML) INFIL ONE ×6 (10:25→11:59)
[2021-12-08] MEDS ORDERED: fentaNYL citrate 100 MCG/2 ML VIAL ONE (10:25)
[2021-12-08] MEDS ORDERED: PROPOFOL IV EMULSION 10 MG/ML 20 ML VIAL IV ONE (10:25)
[2021-12-08] MEDS ORDERED: ONDANSETRON INJ 2 MG/ML 2 ML VIAL ONE (10:28)
[2021-12-08] MEDS ORDERED: ACETAMINOPHEN 500 MG TAB ONE (10:28)
[2021-12-08] MEDS ORDERED: CeleBREX 200 MG CAP ONE (10:28)
[2021-12-08] MEDS ORDERED: GABAPENTIN 300 MG CAP ONE (10:29)
--- NOTE | 2021-12-08 10:31 | Anesthesiology Consultation ---
Date of Service December 08, 2021 Assessment & Plan Chart Review Chart Review: Acceptable Risk for Surgery and Patient NOT seen in Pre Admission Testing Consults Requested none ASA ASA2 Proposed Anesthesia Anesthesia Type: MAC Risk / Benefits Reviewed With: PT / POA / Parent / Guardian, Accepts Plan and Informed Consent Obtained History Surgery Operation Date: 12/08/21 08:20 Proposed Procedures p Cystoscopy, Left Retrograde Pyelogram and Stent Placement - Milton Alford MD Height/Weight Height: 5 ft 3 in Weight: 63.5 kg Allergies Allergy/AdvReac Type Severity Reaction Status Date / Time No Known Allergies Allergy Verified 12/07/21 18:03 Medications Home Medications Medication Instructions Recorded Confirmed Last Taken No Known Home Medications 12/07/21 12/07/21 Unknown Active Medications Generic Name Dose Route Start Last Admin Trade Name Freq PRN Reason Stop Dose Admin Hydromorphone HCl 0.5 mg 12/08/21 01:47 12/08/21 01:58 Hydromorphone Inj 0.5 Mg/0.5 Ml Syr IV 12/22/21 01:46 0.5 mg Q3H PRN Administration Pain Lactated Ringer's 1,000 mls @ 100 mls/hr 12/08/21 05:30 12/08/21 05:41 Lr IV 01/07/22 05:29 100 mls/hr .Q10H PAOLO Administration Oxycodone HCl 5 - 10 mg 12/08/21 01:47 12/08/21 05:35 Oxycodone Hcl Ir 5 Mg Tab (Immediate Release) PO 12/22/21 01:46 10 mg QID PRN Administration Pain Tamsulosin HCl 0.4 mg 12/08/21 05:30 12/08/21 06:33 Tamsulosin Hcl 0.4 Mg Cap PO 01/07/22 05:29 0.4 mg QAM PAOLO Administration NPO Date Last Intake of Fluids: 12/08/21 Time Last Intake of Fluids: 00:00 Date Last Intake of Solids: 12/07/21 Time Last Intake of Solids: 10:00 Past Medical History Medical History (Updated 12/08/21 @ 09:18 by KADI Mehta) Back pain Ovarian cyst Pyelonephritis Exercise / Class Metabolic Activity II 4-5 Yardwork/Stairs/Walk up hill Past Family History Family History Other History of cholecystectomy Past Surgical History Surgical History Status post epidural steroid injection Past Anesthesia History No Hx of Anesthesia Complications (wisdom teeth, only) and No Family Hx of Anesthesia Complications History of PONV No Hx of PONV and No Hx of Motion Sickness Social History Smoking Status: Never smoker Hx Alcohol Use: No Hx Substance Use: Yes substance use type: marijuana (BID) and methamphetamine Substance Use Type Other:: claims MJ laced with amphetamines Last Used Substance: Days (ago) (2 days ago) Review of Systems ROS Unobtainable: All systems reviewed & are unremarkable except as noted in HPI & below Constitutional: as per Subjective / HPI Eyes: as per Subjective / HPI; no eye pain Ear, Nose, Mouth, Throat: as per Subjective / HPI; no ear pain Respiratory: as per Subjective / HPI; no cough and no dyspnea Cardiovascular: as per Subjective / HPI; no chest pain and no chest pain with activity Gastrointestinal: as per Subjective / HPI vomited yesterday afternoon, no problems since Genitourinary (Female): as per Subjective / HPI and + flank pain Musculoskeletal: as per Subjective / HPI and + back pain (Flank pain) Integumentary: as per Subjective / HPI; no rash Neurologic: as per Subjective / HPI; no localized weakness Psychiatric: as per Subjective / HPI Endocrine: as per Subjective / HPI Hematologic / Lymphatic: as per Subjective / HPI Allergy / Immunological: as per Subjective / HPI Physical Exam Vital Signs Last Vital Signs Temp 36.7 C 12/08/21 10:15 Pulse 73 12/08/21 10:15 Resp 18 12/08/21 10:15 BP 112/55 L 12/08/21 10:15 Pulse Ox 97 12/08/21 10:15 Constitutional WD/WN, vitals as above well developed, well nourished and + well hydrated; no acute distress ENMT external ear and nose normal, oropharynx normal Mouth: + chipped teeth (left lower molars); no loose teeth Thyromental Distance: > or= 3.5 Finger Breadths Mallampati Class: I Throat: uvula midline Neck normal visual inspection and trachea midline Respiratory normal respiratory effort, lungs clear to auscultation normal respiratory effort; no respiratory distress Auscultation: lungs clear to auscultation bilaterally Cardiovascular RRR, no murmur, no edema Rate/Rhythm: regular rate and regular rhythm Heart Sounds: no murmur Vessels: no JVD Skin no rashes, warm and dry Neurologic moves all extremities and awake; no focal motor deficits Cranial Nerves: tongue midline and symmetric palate elevation Psychiatric A+Ox3, euthymic affect Orientation: alert and oriented x 3 Apperance: appropriately dressed and appropriately groomed Eye Contact: good eye contact Speech: normal rate/rhythm/volume of speech Affect: euthymic affect Judgement: good judgement Testing Laboratory Results 12/08/21 06:34 12/08/21 06:34 Urine Color Yellow 12/07/21 20:27 Urine Appearance Clear (Clear) 12/07/21 20:27 Urine pH 6.0 (4.5-7.5) 12/07/21 20:27 Ur Specific English 1.027 (1.000-1.030) 12/07/21 20:27 Urine Protein Negative (Negative) 12/07/21 20:27 Urine Glucose (UA) Negative (Negative) 12/07/21 20:27 Urine Ketones Trace (Negative) H 12/07/21 20:27 Urine Nitrite Negative (Negative) 12/07/21 20:27 Ur Leukocyte Esterase 1+ (Negative) H 12/07/21 20:27 Urine WBC (Auto) 10-30 /hpf (0-5) H 12/07/21 20:27 Urine RBC (Auto) 0-4 /hpf (0-4) 12/07/21 20:27 U Hyaline Cast (Auto) 1-5 /lpf (0-5) 12/07/21 20:27 U Epithel Cells (Auto) 5-10 /lpf (0-5) H 12/07/21 20:27 Urine Bacteria (Auto) 1+ (Negative) H 12/07/21 20:27 12/07/21 18:02 POC Ur Test NEG
--- NOTE | 2021-12-08 11:41 | Post Operative Brief Note ---
PG Immediate Post Op with CF Date of Surgery December 08, 2021 Pre & Post Diagnosis Operation Date: 12/08/21 08:20 Pre-Op Diagnosis: OBS UROPATHY Post-Op Diagnosis: OBS UROPATHY I identified the patient and participated in the time-out.: Yes Procedure Operation Date: 12/08/21 08:20 Actual Procedures p Cystoscopy, Left Retrograde Pyelogram and Stent Placement(Left) - Milton Alford MD Surgeon Milton Alford MD Calculator Operator None Estimated Blood Loss 0 Findings See Below Stent in good position Drains Other (6x24 left stent ) Anesthesia Type General Complications none
[2021-12-08] MEDS ORDERED: DIATRIZOATE MEGLUMINE 30% 100ML VIAL INSTIL ONE (11:45)
--- NOTE | 2021-12-08 11:45 | Operative Report ---
PG Post Operative Report Pre & Post Diagnosis Operation Date: 12/08/21 08:20 Pre-Op Diagnosis: OBS UROPATHY Post-Op Diagnosis: OBS UROPATHY I identified the patient and participated in the time-out.: Yes Procedure Operation Date: 12/08/21 08:20 Actual Procedures p Cystoscopy, Left Retrograde Pyelogram with radiographic interpretation and Stent Placement(Left) - Milton Alford MD Surgeon Milton Alford MD Mobile Product Manager None Estimated Blood Loss 0 Findings See Below Left retrograde pyelogram showed mild hydronephrosis. Stent in appropriate position. Specimens None Drains 6 [place] by 24 cm left ureteral stent Anesthesia Type General Complications none Indications 36-year-old female with a 7 mm left proximal obstructing ureteral calculus. Recent benefits discussed and patient opted for stent placement. Description of Procedure After informed consent was obtained, the patient was transported operative suite. MAC anesthesia was induced. The patient was placed in dorsal lithotomy position prepped and draped in a sterile fashion. They received preoperative ceftriaxone for antibiotic prophylaxis. An appropriate surgical timeout was performed. A 22 [place] rigid scope was inserted per urethra into the bladder. Lepe cystoscopy revealed no stones or lesions. I turned my attention the left ureteral orifice and intubated this with a 5 [place] open-ended catheter. A left retrograde pyelogram was shot which showed mild hydronephrosis A sensor wire was advanced into the kidney and confirmed fluoroscopically. A 6 [place] by 24 cm left ureteral stent was deployed with a good proximal coil in the renal pelvis and a good distal coil noted in the bladder. These were confirmed fluoroscopically and under direct visualization, respectively. The bladder was emptied and the scope was removed. This concluded the end of the case. All counts were correct at the end of the case. I was present, scrubbed, and actively participated for the entirety of the procedure. I attest to the content of the Intraoperative Record and any orders documented therein. Any exceptions are noted below.
[2021-12-08] MEDS: HYDROmorphone INJ 2 MG/ML SYR/VIAL IV PRN ×2 (11:49→11:55)
--- NOTE | 2021-12-08 11:54 | Fluoroscopy Report ---
FL retrograde includes kub CLINICAL HISTORY: STENT PLACEMENT TECHNIQUE: 2 views were obtained with the C-arm in the OR with the above procedure. Total fluoroscopy time was 12.4 seconds. Total skin dose was 1.57 mGy. Comparison: None available at the time of this dictation. FINDINGS/IMPRESSION: Intraoperative images were obtained of left sided retrograde pyelogram with sten t placement. Please correlate with intraoperative fluoroscopy and operative report. ACT 112: Negative or not required by law. Electronically signed by: Michael Marie M.D. 12/08/2021 11:53 AM
--- NOTE | 2021-12-08 12:16 | Anesthesiology Progress Note ---
Date of Service December 08, 2021 Anesthesia Post Procedure Vital Signs Vital Signs: Temp Pulse Pulse Pulse Resp BP BP 12/08/21 12:10 69 20 112/73 12/08/21 12:00 60 12 105/71 12/08/21 11:50 56 L 12 115/74 12/08/21 11:44 36.4 C L 47 L 12 100/68 12/08/21 10:15 36.7 C 73 18 112/55 L 12/08/21 08:54 36.8 C 80 18 102/66 12/08/21 01:35 36.7 C 57 L 18 119/67 12/08/21 01:00 74 19 118/70 12/08/21 00:00 63 18 124/61 12/07/21 23:00 83 17 132/79 12/07/21 19:42 80 16 107/57 L 12/07/21 17:07 36.1 C L 83 18 112/77 Pulse Ox 12/08/21 12:10 98 12/08/21 12:00 98 12/08/21 11:50 100 12/08/21 11:44 100 12/08/21 10:15 97 12/08/21 08:54 96 12/08/21 01:35 99 12/08/21 01:00 97 12/08/21 00:00 97 12/07/21 23:00 98 12/07/21 19:42 99 12/07/21 17:07 99 Pain Intensity Abdomen: Pain Intensity: 0 Other: Pain Intensity: 0 Transfer of Care Handoff Completed per policy Notes Mental Status: alert / awake / arousable and participated in evaluation Patient Amnestic to Procedure: Yes Nausea / Vomiting: adequately controlled Pain: adequately controlled (initially 8/10, down to 4/10 with dilaudid, 0/10 after lidocaine IV) Airway Patency, RR, SpO2: stable & adequate BP & HR: stable & adequate Hydration State: stable & adequate Anesthetic Complications: no major complications apparent and Pt Satisfied with anesthetic care
[2021-12-08] MEDS: ACETAMINOPHEN 325 MG TAB PO PRN (15:20)
[2021-12-08] MEDS ORDERED: cefTRIAXone SODIUM 1,000 MG in DEXTROSE 5% 50 ML IV SCH (21:00)
[2021-12-09] MEDS: oxyCODONE HCL IR 5 MG TAB (IMMEDIATE RELEASE) PO PRN (00:17)
[2021-12-09] MEDS: ACETAMINOPHEN 325 MG TAB PO PRN ×2 (00:18→07:54)
[2021-12-09] MEDS: TAMSULOSIN HCL 0.4 MG CAP PO SCH (07:53)
--- NOTE | 2021-12-09 08:44 | Hospitalist Progress Note ---
Date of Service December 09, 2021 Assessment & Plan (1) ARF (acute renal failure): Plan: JOSÉ MIGUEL Secondary to obstructive uropathy History of kidney stones No sepsis for now CT abd/ pelvis 1. Mild left-sided hydroureter without significant hydronephrosis secondary to a 7 mm left ureteral calculus at the level of L4. 2. Mild urothelial thickening and enhancement of the left ureter is likely reactive. Correlate with urinalysis to exclude superimposed infection. 3. Left nephrolithiasis. Creatinine improved after IV fluids Creatinine 1.3 on admission, now 0.7 Strain urine added flomax Cont. ceftriaxone for now Urology consulted Re: Obstructive uropathy Patient is now status post cystoscopy and left ureteral stent placement (12/08, Dr. Alford, urology) Tolerated procedure well, has very mild hematuria UTI Leukocytosis WBC 16.6 K, now normalized at 8.5 K Urine culture positive for E.coli x2 -sensitive to ceftriaxone Started IV ceftriaxone on admission, cont. for now Will DC on p.o. antibiotic We will also DC with Pyridium, Flomax, pain meds Outpatient follow-up with urology Chronic conditions GERD, stable DVT prophylaxis. SCDs Full code Admission and Anticipated Discharge Date Admission Date: December 07, 2021 Subjective Pt seen in follow up of renal stones, renal colic, hydronephrosis (on the left) Patient underwent cystoscopy, left ureteral stent placement with urology yesterday Currently laying in bed, resting comfortably Denies fevers, chills, chest pain, shortness of breath, has some abdominal discomfort on and off Reports some mild hematuria after procedure Creatinine and white blood cell count normalized Review of Systems Review of Systems: All systems reviewed & are unremarkable except as noted in Subjective Physical Exam Physical Exam: GENERAL: Young F, laying in bed, in no distress HEENT: NC/AT, EOMI, PERRL NECK : Supple, no tenderness CHEST : CTAB HEART : RRR, no obvious murmurs ABDOMEN: Soft, lower abdomen mildly tender to palp. EXTREMITIES : No LE swelling, moves extremities NEUROLOGIC : Coherent, no facial asymmetry, speech fluent, moves extremities SKIN: Normal color, warm Results & Data Results & Data ([facility]) Vital Signs (Past 12 Hours) Vital Signs Temp Pulse Pulse Resp BP Pulse Ox 12/09/21 07:42 37.2 C 67 18 108/68 98 12/09/21 04:13 36.8 C 55 L 16 118/67 96 12/09/21 00:04 36.7 C 58 L 16 120/67 97 Laboratory Results 12/09/21 12/09/21 Range/Units 08:05 08:05 WBC 8.46 (4.8-10.8) K/uL RBC 4.26 (4.2-5.4) M/uL Hgb 12.6 (12.0-16.0) g/dL Hct 38.2 (37-47) % MCV 89.7 (80-100) fL MCH 29.6 (25-34) pg MCHC 33.0 (32-36) g/dL RDW Std Deviation 40.1 (36.4-46.3) fL RDW Coeff of Jr 12.3 (11.5-14.5) % Plt Count 349 (130-400) K/uL MPV 9.1 (7.4-10.4) fL Sodium 138 (136-145) mmol/L Potassium 3.6 (3.5-5.1) mmol/L Chloride 107 (98-107) mmol/L Carbon Dioxide 27 (21-32) mmol/L Anion Gap 4 (3-11) BUN 5 L (6-23) mg/dl Creatinine 0.74 (0.6-1.2) mg/dl Est Cr Clr Drug Dosing 96.1 ml/min Est GFR ( Amer) 122.5 ml/min Est GFR (Non-Af Amer) 105.7 ml/min BUN/Creatinine Ratio 6.8 L (10-20) Glucose 89 (70-99(Fasting)) mg/dl Calcium 8.7 (8.5-10.1) mg/dl Phosphorus 2.7 (2.5-4.9) mg/dl Magnesium 1.9 (1.7-2.4) mg/dl Medications Administered Current Inpatient Medications Acetaminophen (Acetaminophen 325 Mg Tab) 650 mg PO Q6H PRN PRN Reason: Fever/pain Stop: 01/06/22 23:41 Last Admin: 12/09/21 07:54 Dose: 650 mg Documented by: Hydromorphone HCl (Hydromorphone Inj 0.5 Mg/0.5 Ml Syr) 0.5 mg IV Q3H PRN PRN Reason: Pain Stop: 12/22/21 01:46 Last Admin: 12/08/21 01:58 Dose: 0.5 mg Documented by: Promethazine HCl 12.5 mg/ (Sodium Chloride) 50.5 mls @ 202 mls/hr IV Q6H PRN PRN Reason: Nausea And Vomiting Stop: 01/07/22 01:46 Ceftriaxone Sodium 1,000 mg/ (Dextrose) 60 mls @ 100 mls/hr IV Q24H [facility]; Protocol Stop: 12/18/21 20:59 Last Infusion: 12/08/21 21:36 Dose: Infused Documented by: Oxycodone HCl (Oxycodone Hcl Ir 5 Mg Tab (Immediate Release)) 5 - 10 mg PO QID PRN PRN Reason: Pain Stop: 12/22/21 01:46 Last Admin: 12/09/21 00:17 Dose: 10 mg Documented by: Potassium Chloride (Potassium Chloride Crtab 20 Meq Tabcr) 20 meq PO NOW STA Stop: 12/09/21 10:33 Tamsulosin HCl (Tamsulosin Hcl 0.4 Mg Cap) 0.4 mg PO QAM [facility] Stop: 01/07/22 05:29 Last Admin: 12/09/21 07:53 Dose: 0.4 mg Documented by:
[2021-12-09 08:49] LABS: Hematocrit (blood only) 38.2 % (37-47); Hemoglobin 12.6 g/dL (12.0-16.0); Mean Corpuscular Hemoglobin 29.6 pg (25-34); Mean Corpuscular Volume 89.7 fL (80-100); Mean Platelet Volume 9.1 fL (7.4-10.4); Platelet Count 349 K/uL (130-400); RDW Coefficient of Variation 12.3 % (11.5-14.5); RDW Standard Deviation 40.1 fL (36.4-46.3); Red Blood Count 4.26 M/uL (4.2-5.4); White Blood Count 8.46 K/uL (4.8-10.8)
--- NOTE | 2021-12-09 09:00 | Urology Progress Note ---
Date of Service December 09, 2021 Assessment & Plan (1) Left ureteral calculus: (2) UTI (urinary tract infection): Plan: 36yo F admitted with intractable left flank pain, JOSÉ MIGUEL, and concern for UTI in the setting of a left-sided ureteral calculus causing mild urothelial thickening and enhancement of the left ureter - POD #1 s/p Cystoscopy, Left Retrograde Pyelogram with radiographic interpretation and Stent Placement. - Tolerating the ureteral stent with minimal bother. - Afebrile, hemodynamically stable. - Labs reviewed - Wbc 8.46, Creatinine 0.74. - Urine culture x 2 prelim with gram-negative bacilli, continues on IV Rocephin. - Voiding without difficulty, some hematuria/dysuria as expected. - Okay to d/c from perspective when medically stable with course of appropriate PO antibiotics per culture sensitivities. - Recommend Tamsulosin, prn Pyridium and prn pain medication for stent management. - Expected clinical course reviewed, all questions answered - Will arrange outpatient follow-up with our service - Thank you for allowing us to participate in the acute care of Ms. Mayfield. Please reconsult us with additional questions, concerns or changes in patient status. Admission and Anticipated Discharge Date Admission Date: December 07, 2021 Supervising Physician Co-Signing Physician Notes I have discussed Ms. Mayfield's case with KADI Friend and agree with the above documentation. She is doing well overall after stent placement. We will coordinate outpatient follow-up for management of her stone. Urology will sign off for now, please call with questions or concerns. Subjective Pt examined at bedside this AM. Asleep on arrival, awakened to name. No acute distress. Reports some intermittent abdominal/flank discomfort. No fevers or chills. Mild nausea this morning, no vomiting. Some hematuria and dysuria. Feels she is emptying her bladder. Review of Systems Constitutional: as per Subjective / HPI Gastrointestinal: as per Subjective / HPI Genitourinary: as per Subjective / HPI Physical Exam Constitutional: no acute distress Respiratory: no respiratory distress and no labored breathing Gastrointestinal (Abdomen): Inspection/Auscultation: abdomen normal to inspection Neurologic: moves all extremities and awake Psychiatric: Orientation: alert, oriented x 3 and cooperative Results & Data ([facility]) Vital Signs (Past 12 Hours) Vital Signs Temp Pulse Pulse Resp BP Pulse Ox 12/09/21 07:42 37.2 C 67 18 108/68 98 12/09/21 04:13 36.8 C 55 L 16 118/67 96 12/09/21 00:04 36.7 C 58 L 16 120/67 97 PG Care Time/CCT Total # of Minutes Spent Total Time Spent with Patient: Total time spent is greater than 50% in coordination of care (as documented) at patient's floor/unit and/or counseling patient: Coding Level of Care Code 96154 Subseq Hosp Care Lvl 2 Diagnoses Left ureteral calculus N20.1 UTI (urinary tract infection) N30.01 Hematuria presence: with hematuria Urinary tract infection type: acute cystitis (1) UTI (urinary tract infection) Hematuria presence: with hematuria Urinary tract infection type: acute cystitis Qualified Code(s): N30.01 - Acute cystitis with hematuria
[2021-12-09 09:14] LABS: BUN Creatinine Ratio 6.8 (10-20); Calcium 8.7 mg/dl (8.5-10.1); Creatinine Clr Calc Pharmacy 96.1 ml/min; Est GFR (African American) 122.5 ml/min; Est GFR (Non-African American) 105.7 ml/min; Magnesium 1.9 mg/dl (1.7-2.4); Phosphorus 2.7 mg/dl (2.5-4.9); Potassium 3.6 mmol/L (3.5-5.1)
[2021-12-09] MEDS ORDERED: POTASSIUM CHLORIDE CRTAB 20 MEQ TABCR PO STA (10:32)
--- NOTE | 2021-12-09 10:54 | Discharge Summary ---
Date of Service December 09, 2021 Admission HPI Per Admitting Provider History obtained from patient and records. Medical history significant for urolithiasis, GERD, anxiety disorder. 4 days ago, patient noted back pain more on the right reminiscent of kidney stone pain. No hematuria, no fever. Some chills. Patient denies chest pain, SOB. Admits to not drinking as much water as she should. Patient given IV ceftriaxone at the ER. Medical History as above Surgical History : Paternal surgery, dental surgery Family History : Kidney stones Personal/Social history : Non-smoker, no EtOH intake, caregiver Admission Exam Per Admitting Provider GENERAL: Slightly uncomfortable, no respiratory distress SKIN: Normal color, warm HEENT: [place] palpebral conjunctivae, teary-eyed, no ptosis, dry buccal mucosa NECK : Supple, no tenderness CHEST : CTA, no tenderness HEART : RRR, no obvious murmurs ABDOMEN: Some distention, nontender EXTREMITIES : No LE swelling/tenderness, no other conspicuous deformities noted NEUROLOGIC : Coherent, no facial asymmetry, no other gross focality Principal Diagnosis UTI, JOSÉ MIGUEL, obstructive uropathy, left ureteral stone , now status post left ureteral stent placement Discharge Exam GENERAL: Young F, laying in bed, in no distress HEENT: NC/AT, EOMI, PERRL NECK : Supple, no tenderness CHEST : CTAB HEART : RRR, no obvious murmurs ABDOMEN: Soft, lower abdomen mildly tender to palp. EXTREMITIES : No LE swelling, moves extremities NEUROLOGIC : Coherent, no facial asymmetry, speech fluent, moves extremities SKIN: Normal color, warm Discharge Data Allergies Allergy/AdvReac Type Severity Reaction Status Date / Time No Known Allergies Allergy Verified 12/07/21 18:03 Consultations 12/08/21 01:47 Consult Urology Routine Procedures Performed Operation Date: 12/08/21 08:20 Actual Procedures p Cystoscopy, Left Retrograde Pyelogram and Stent Placement(Left) - Milton Alford MD Ordered Studies 12/07/21 17:43 CT abd pelvis IV con only Stat IMPRESSION: 1. Mild left-sided hydroureter without significant hydronephrosis secondary to a 7 mm left ureteral calculus at the level of L4. 2. Mild urothelial thickening and enhancement of the left ureter is likely reactive. Correlate with urinalysis to exclude superimposed infection. 3. Left nephrolithiasis. 4. No bowel obstruction or bowel wall thickening. Normal appendix. 12/08/21 11:10 FL retrograde includes kub Routine Hospital Course (1) ARF (acute renal failure): JOSÉ MIGUEL Secondary to obstructive uropathy History of kidney stones No sepsis for now CT abd/ pelvis 1. Mild left-sided hydroureter without significant hydronephrosis secondary to a 7 mm left ureteral calculus at the level of L4. 2. Mild urothelial thickening and enhancement of the left ureter is likely reactive. Correlate with urinalysis to exclude superimposed infection. 3. Left nephrolithiasis. Creatinine improved after IV fluids Creatinine 1.3 on admission, now 0.7 Strain urine added flomax Cont. ceftriaxone for now Urology consulted Re: Obstructive uropathy Patient is now status post cystoscopy and left ureteral stent placement (12/08, Dr. Alford, urology) Tolerated procedure well, has very mild hematuria UTI Leukocytosis WBC 16.6 K, now normalized at 8.5 K Urine culture positive for E.coli x2 -sensitive to ceftriaxone Started IV ceftriaxone on admission, cont. for now Will DC on p.o. antibiotic We will also DC with Pyridium, Flomax, pain meds Outpatient follow-up with urology Chronic conditions GERD, stable Total Time Total Time Spent Total Time Spent (In Minutes): 40 Discharge Plan Discharge Items Patient Disposition: Home - Self-Care Reason For Visit: OBS UROPATHY Discharge Diagnosis: UTI, JOSÉ MIGUEL, obstructive uropathy, left ureteral stone , now status post left ureteral stent placement Activity: Per Instructions section Non-emergency contact: Primary Care Provider and Urologist Call non-emergency contact if: you have any medication questions and your symptoms worsen Follow-up/Referrals: PCP,NO [Primary Care Provider] - Diet: Regular Addtl Attending Provider Instructions: Follow-up with your primary care doctor and urology. Follow-up with your primary care doctor within 1 week. You will need to follow-up with urology for further kidney stone management. For pain, you can take Tylenol 1000 mg 3 times a day. Do not exceed the maximal dose of 3000 mg a day. You can also use Pyridium. For more severe pain, take oxycodone as prescribed. Take tamsulosin daily as prescribed. Finish antibiotic treatment, with cefpodoxime as prescribed. Pending Studies at Discharge: No Stand-Alone Forms: [employer], Work/School Release, Smoking Cessation Medications and DC Order Prescriptions: New cefpodoxime 200 mg tablet 200 mg PO BID 3 Days Qty: 6 RF: 0 tamsulosin 0.4 mg Capsule 0.4 mg PO QAM Qty: 10 RF: 0 phenazopyridine [Pyridium] 200 mg tablet 200 mg PO TID PRN (Reason: pain) Qty: 7 RF: 0 oxycodone 5 mg tablet 5 mg PO Q8H Qty: 7 RF: 0 Discharge Orders: Discharge Order (Routine); Ordered 12/09/21 Ordered By: Blaise Reeves Admission Data Admit Date/Time: 12/07/21 23:40 Attending Provider: Blaise Reeves Admit Provider: Guzman Feliz Primary Care Provider: PCP,NO Other Providers: Woody Leon ; Steve Pascual ; Arthur Arenas ; Rosa Cruz ; Seymour Manning ; Haylie Traylor ; Dolores Pearl ; Ce Padron ; Lambert Rosa ; Radhames Hidalgo ; Malou Metz ; Ana Padron ; Milton Alford
== END 2021-12-09 12:00 | disposition home or self-care (01) | DRG 661 ==
LOC: ED 16:56 → 3W 23:40